=== PATIENT | male | born 1945 | race Caucasian/White ===

== ENCOUNTER 2020-12-17 11:30 | Outpatient (REF) | payer MEDICARE, SELFPAY ==
[2020-12-17 13:59] LABS: MANUAL DIFF FLAG NO
[2020-12-17 14:03] LABS: Glucose Urine UA NEG (NEG); Leukocyte Esterase Urine NEG (NEG); Nitrite Urine NEG (NEG); Urine Blood NEG (NEG); Urine Ketones NEG (NEG); Urine Protein NEG (NEG-TRACE)
[2020-12-17 14:06] LABS: Appearance Urine CLEAR; Color Urine YELLOW
[2020-12-17 14:09] LABS: Basophils Percent Auto 0.4 % (0-2); Eosinophils Absolute Auto 0.3 X10*3/uL (0.0-0.4); Eosinophils Percent Auto 2.9 % (0-4); Hematocrit 43.9 % (42-52); Hemoglobin 14.5 g/dl (14.0-18.0); Imm Gran Abs Auto 0.02 X10*3/uL (0.00-0.03); Imm Gran Pct Auto 0.2 % (0.0-0.4); Lymphocytes Absolute Auto 1.3 X10*3/uL (1.2-4.9); Lymphocytes Percent Auto 14.9 % (20-40); Mean Corpuscular Hemoglobin 28.7 pg (27.0-33.0); Mean Corpuscular Volume 86.8 fL (80-98); Mean Platelet Volume 9.9 fL (9.4-12.4); Monocytes Absolute Auto 0.8 X10*3/uL (0.1-1.2); Monocytes Percent Auto 8.8 % (2-11); Neutrophils Absolute Auto 6.2 X10*3/uL (2.0-8.3); Neutrophils Percent Auto 72.8 % (45-73); Platelet Count 269 X10*3/uL (160-400); Red Blood Count 5.06 X10*6/uL (4.60-5.80); Red Cell Distribution Width 13.5 % (11.0-16.0); White Blood Count 8.6 X10*3/uL (4.8-10.8)
[2020-12-17 14:29] LABS: Bacteria Urine TRACE /LPF; RBC Urine 0 /HPF (0); Squamous Epithelial Cell Urine TRACE /LPF; WBC Urine 0-2 /HPF (0-4)
[2020-12-17 14:43] LABS: Alanine Aminotransferase 18 U/L (0-40); Albumin Level 4.5 g/dL (3.5-5.0); Alkaline Phosphatase 78 U/L (39-117); Anion Gap 15 (12-20); Aspartate Amino Transferase 18 U/L (5-37); Bilirubin Total 0.6 mg/dL (0.0-1.0); Blood Urea Nitrogen 17 mg/dL (9-16); Calcium 9.2 mg/dL (8.4-10.2); Carbon Dioxide 25 mmol/L (22-29); Chloride 112 mmol/L (96-108); Cholesterol 160 mg/dL; Estimated Glomerular Filt Rate 60; Glucose Fasting 96 mg/dL (60-99); HDL Cholesterol 38 mg/dL; LDL Cholesterol Calculated 103 mg/dl; Potassium 3.8 mmol/L (3.3-5.1); Sodium 148 mmol/L (135-145); Triglycerides 99 mg/dL
[2020-12-17 15:05] LABS: Prostate Specific Antigen Scr 3.83 ng/mL (<0.05-4.0)
== END 2020-12-17 11:31 | disposition home or self-care (01) ==
LOC: HO.10HDL 11:30
PROVIDERS: Visit Provider Internal Medicine
DX: N40.0 Benign prostatic hyperplasia without lower urinary tract symptoms (principal); K21.9 Gastro-esophageal reflux disease without esophagitis; K57.90 Diverticulosis of intestine, part unspecified, without perforation or abscess without bleeding; Z12.5 Encounter for screening for malignant neoplasm of prostate; E78.1 Pure hyperglyceridemia
CPT/HCPCS: 36415; 80053; 80061; 81001; 84153; 85025; 87086; 87088; 87186

== ENCOUNTER 2021-01-15 09:53 | Outpatient (REF) | payer MEDICARE, SELFPAY ==
--- NOTE | ~2021-01-15 | US_ITS ---
EXAMINATION: US RETROPERITONEAL COMPLETE (RENAL) CLINICAL INFORMATION: Nocturia. COMPARISON: CT abdomen and pelvis 05/23/2014 TECHNIQUE: Real-time imaging of the kidneys and bladder. FINDINGS: RIGHT KIDNEY: 10.5 x 7.2 x 6.4 cm (SAG x AP x TRV). The kidney is normal in size, contour, and echogenicity. Renal cortical thickness is normal. No renal calculi or focal parenchymal lesions. There is mild hydronephrosis extending into the right lower quadrant. LEFT KIDNEY: 11.6 x 6.4 x 5.8 cm (SAG x AP x TRV). The kidney is normal in size, contour, and echogenicity. Renal cortical thickness is normal. No renal calculi. There is mild hydronephrosis. In addition, there are 2 anechoic cysts midpole laterally measuring 1.1 x 1.3 x 1.2 cm and midpole medially measuring 1.7 x 1.5 x 1.9 cm. BLADDER: Significantly distended urinary bladder with wall trabeculations visualized. Bilateral ureteral jets are demonstrated. Prevoid bladder volume is 1502 mL. Postvoid bladder volume is 1256 mL. US/US retroperitoneal comp IMPRESSION: Large postvoid residual bladder volume. Normal bilateral ureteral jets. Prominent bladder wall trabeculation seen. Two cysts left kidney midpole. Bilateral hydronephrosis, question etiology.
== END 2021-01-15 09:54 | disposition home or self-care (01) ==
LOC: HO.US 09:53
PROVIDERS: PCP Internal Medicine; Visit Provider Internal Medicine
DX: R35.8 Other polyuria (principal); R35.1 Nocturia
CPT/HCPCS: 76770

== ENCOUNTER → 2021-01-16 14:06 | Outpatient (BNVA) | payer MEDICARE, SELFPAY | PROVIDERS: PCP Internal Medicine; Visit Provider Urology | DX: N32.0 Bladder-neck obstruction (principal); R39.12 Poor urinary stream; R35.0 Frequency of micturition; R39.15 Urgency of urination | CPT/HCPCS: 51701; 51702; 51798; 81002; 99202 ==

== ENCOUNTER → 2021-02-06 09:54 | Outpatient (BNVA) | payer MEDICARE, SELFPAY | PROVIDERS: PCP Internal Medicine; Visit Provider Urology | DX: R33.9 Retention of urine, unspecified (principal); N32.0 Bladder-neck obstruction | CPT/HCPCS: 52000; 99212 ==

== ENCOUNTER → 2021-02-22 14:51 | Outpatient (BNVA) | payer MEDICARE, SELFPAY | PROVIDERS: PCP Internal Medicine; Visit Provider Urology | DX: N32.0 Bladder-neck obstruction (principal); R33.9 Retention of urine, unspecified | CPT/HCPCS: Q3014 ==

== ENCOUNTER 2021-05-31 11:00 | Outpatient (REF) | payer MEDICARE, SELFPAY ==
--- NOTE | ~2021-05-31 | XR_ITS ---
EXAMINATION: XR LUMBOSACRAL SPINE CLINICAL INFORMATION: Low back pain. COMPARISON: None. TECHNIQUE: 3 views of the lumbosacral spine. FINDINGS: There is normal lumbar lordosis. The vertebral heights and alignment is normal. There is loss of L2-L3, L1-L2, T12-L1 and T11-T12 disc heights with mild ventral spondylosis. There is no visible acute fracture, dislocation or lytic process. The SI joints are symmetrical. The soft tissues are normal. XR/XR lumbar spine 2-3V IMPRESSION: Degenerative disc changes, mild ventral spondylosis lower dorsal and upper lumbar spine. No acute fracture or lytic process seen.
[2021-05-31 11:43] LABS: MANUAL DIFF FLAG NO
[2021-05-31 11:47] LABS: Basophils Percent Auto 0.6 % (0-2); Eosinophils Absolute Auto 0.3 X10*3/uL (0.0-0.4); Eosinophils Percent Auto 4.3 % (0-4); Hematocrit 43.5 % (42-52); Hemoglobin 14.6 g/dl (14.0-18.0); Imm Gran Abs Auto 0.03 X10*3/uL (0.00-0.03); Imm Gran Pct Auto 0.4 % (0.0-0.4); Lymphocytes Absolute Auto 1.5 X10*3/uL (1.2-4.9); Lymphocytes Percent Auto 21.4 % (20-40); Mean Corpuscular HGB Conc 33.6 g/dl (31.0-36.0); Mean Corpuscular Hemoglobin 29.1 pg (27.0-33.0); Mean Corpuscular Volume 86.8 fL (80-98); Mean Platelet Volume 9.6 fL (9.4-12.4); Monocytes Absolute Auto 0.8 X10*3/uL (0.1-1.2); Monocytes Percent Auto 10.6 % (2-11); Neutrophils Absolute Auto 4.5 X10*3/uL (2.0-8.3); Neutrophils Percent Auto 62.7 % (45-73); Platelet Count 263 X10*3/uL (160-400); Red Blood Count 5.01 X10*6/uL (4.60-5.80); Red Cell Distribution Width 13.2 % (11.0-16.0); White Blood Count 7.1 X10*3/uL (4.8-10.8)
[2021-05-31 12:16] LABS: Alanine Aminotransferase 11 U/L (0-40); Albumin Level 4.2 g/dL (3.5-5.0); Alkaline Phosphatase 83 U/L (39-117); Anion Gap 11 (12-20); Aspartate Amino Transferase 15 U/L (5-37); Bilirubin Total 0.5 mg/dL (0.0-1.0); Blood Urea Nitrogen 15 mg/dL (9-16); C Reactive Protein 0.32 mg/dL (< or = 0.50); Calcium 9.6 mg/dL (8.4-10.2); Carbon Dioxide 24 mmol/L (22-29); Chloride 111 mmol/L (96-108); Estimated Glomerular Filt Rate > 60; Glucose Random 77 mg/dL (60-115); Potassium 4.2 mmol/L (3.3-5.1); Sodium 142 mmol/L (135-145); Total Protein 6.8 g/dL (6.5-8.0)
== END 2021-05-31 11:01 | disposition home or self-care (01) ==
LOC: HO.XRAY 11:00
PROVIDERS: PCP Internal Medicine; Visit Provider Internal Medicine
DX: M54.9 Dorsalgia, unspecified (principal); N40.0 Benign prostatic hyperplasia without lower urinary tract symptoms; N31.9 Neuromuscular dysfunction of bladder, unspecified
CPT/HCPCS: 36415; 72100; 80053; 85025; 86140

== ENCOUNTER 2021-06-24 10:29 | Outpatient (REF) | payer MEDICARE, SELFPAY ==
[2021-06-24 13:33] LABS: Glucose Urine UA NEG (NEG); Leukocyte Esterase Urine 3+ (NEG); Nitrite Urine NEG (NEG); Urine Blood 3+ (NEG); Urine Ketones NEG (NEG); Urine Protein 2+ MG/DL (NEG-TRACE)
[2021-06-24 13:39] LABS: Appearance Urine HAZY; Color Urine YELLOW
[2021-06-24 13:56] LABS: Bacteria Urine 3+ /LPF; WBC Urine TNTC /HPF (0-4)
== END 2021-06-24 10:30 | disposition home or self-care (01) ==
LOC: HO.LAB 10:29
PROVIDERS: PCP Internal Medicine; Visit Provider Urology
DX: R33.9 Retention of urine, unspecified (principal)
CPT/HCPCS: 81001; 87086; 87088; 87186

== ENCOUNTER → 2021-08-27 13:44 | Outpatient (BNVA) | payer MEDICARE, SELFPAY | PROVIDERS: Visit Provider Urology | DX: R33.9 Retention of urine, unspecified (principal); N32.0 Bladder-neck obstruction; N39.0 Urinary tract infection, site not specified | CPT/HCPCS: 51798; 99212 ==

== ENCOUNTER 2021-10-29 16:43 | Outpatient (REF) | payer MEDICARE, SELFPAY ==
[2021-10-29 17:25] LABS: Influenza A PCR NEGATIVE (Negative); Influenza B PCR NEGATIVE (Negative); Resp Syncy Virus RNA Qual PCR NEGATIVE (Negative); SARS COV2 PCR INHOUSE POSITIVE (Negative)
== END 2021-10-29 16:44 | disposition home or self-care (01) ==
LOC: HO.LNP 16:43
PROVIDERS: Visit Provider Internal Medicine
DX: Z20.822 Contact with and (suspected) exposure to COVID-19 (principal); R05.9 Cough, unspecified; R51.9 Headache, unspecified
CPT/HCPCS: 0241U

== ENCOUNTER 2021-10-31 11:55 | Outpatient (REF) | payer MEDICARE, SELFPAY ==
--- NOTE | ~2021-10-31 | XR_ITS ---
EXAMINATION: XR CHEST CLINICAL INFORMATION: Covid positive. Productive cough. COMPARISON: Previous chest x-ray March 2017 TECHNIQUE: 2 views of the chest were obtained. FINDINGS: The cardiac and mediastinal contours are stable. There may be atelectasis or small infiltrate at the left lung base in the left lower lobe. The lungs are otherwise clear. There is no pleural effusion or pneumothorax. There are postsurgical changes to the left shoulder. Bony structures are otherwise unremarkable.. XR/XR chest 2V IMPRESSION: Question atelectasis or small infiltrate left lower lobe.
== END 2021-10-31 11:56 | disposition home or self-care (01) ==
LOC: HO.XRAY 11:55
PROVIDERS: Visit Provider Internal Medicine
DX: U07.1 COVID-19 (principal)
CPT/HCPCS: 71046

== ENCOUNTER 2021-11-06 02:14 | Inpatient (IN) | payer MEDICARE, SELFPAY ==
[2021-11-06] VITALS (12 sets, daily range): BP systolic 104–129; BP diastolic 56–72; PULSE 68–90; RESP 15–22; TEMP 36.3–36.8; O2SAT 86–94; BMI 27.3
--- NOTE | ~2021-11-06 | US_ITS ---
EXAMINATION: US SCROTUM CLINICAL INFORMATION: Swelling scrotum. Left epididymal abscess.. COMPARISON: None TECHNIQUE: A sonogram of the scrotum was performed assessing munguia-scale appearance and color Doppler flow. Spectral Doppler analysis of the arterial and venous flow were performed in the testes bilaterally. FINDINGS: RIGHT: Right testicle measures 4.1 x 3.4 x 2.9 cm, volume 20.6 mL. No focal testicular parenchymal lesions are visualized. Spectral Doppler analysis of the arterial and venous flow is normal in the right testis. Right epididymal head is normal in size. Epididymal head cysts noted measuring up to 1.1 cm. This has a complex appearance. No varicocele. There is a small hydrocele with internal debris. Right epididymal Doppler flow is increased. LEFT: Left testicle measures 4.1 x 2.6 x 2.8 cm, volume 15.6 mL. No focal testicular parenchymal lesions are visualized. Spectral Doppler analysis of the arterial and venous flow is increased in the left testis. Left epididymal head is normal in size. 0.9 cm epididymal head cysts noted. No varicocele. Moderate complex hydrocele. Left epididymal Doppler flow is increased. Area of edema also noted in the left scrotal wall. US/US scrotum IMPRESSION: Bilateral epididymitis. There is also a left orchitis noted. Bilateral complex hydroceles.
--- NOTE | ~2021-11-06 | XR_ITS ---
EXAMINATION: XR CHEST CLINICAL INFORMATION: Cough COMPARISON: 10/31/2021 TECHNIQUE: Frontal view of the chest was obtained. FINDINGS: Cardiac leads overlie the chest. The lungs are well expanded. Patchy opacities are seen at both mid to lower lungs. No pleural effusion or pneumothorax. The cardiomediastinal silhouette is within normal limits. Radiopaque anchors of the left humeral head. XR/XR chest 1V IMPRESSION: Patchy bilateral mid to lower lung opacities could be infectious or inflammatory.
--- NOTE | 2021-11-06 02:54 | ECG_ITS ---
Test Reason : SOB Blood Pressure : / mmHG Vent. Rate : 080 BPM Atrial Rate : 080 BPM P-R Int : 152 ms QRS Dur : 094 ms QT Int : 380 ms P-R-T Axes : 048 015 016 degrees QTc Int : 438 ms Artifact in tracing Normal sinus rhythm Normal ECG No previous ECGs available Referred By: Generic ED Physician Electronically Signed By:YOHANA RUGGIERO
[2021-11-06 03:09] LABS: MANUAL DIFF FLAG NO
[2021-11-06 03:11] LABS: Basophils Percent Auto 0.1 % (0-2); Eosinophils Absolute Auto 0.1 X10*3/uL (0.0-0.4); Eosinophils Percent Auto 0.9 % (0-4); Hematocrit 42.6 % (42.0-52.0); Hemoglobin 14.4 g/dl (14.0-18.0); Imm Gran Pct Auto 2.1 % (0.0-0.4); Lymphocytes Absolute Auto 1.1 X10*3/uL (1.2-4.9); Lymphocytes Percent Auto 7.7 % (20-40); Mean Corpuscular HGB Conc 33.8 g/dl (31.0-36.0); Mean Corpuscular Hemoglobin 28.8 pg (27.0-33.0); Mean Corpuscular Volume 85.2 fL (80.0-98.0); Mean Platelet Volume 8.8 fL (9.4-12.4); Monocytes Absolute Auto 1.1 X10*3/uL (0.1-1.2); Monocytes Percent Auto 7.8 % (2-11); Neutrophils Absolute Auto 11.6 x10*3/uL (2.0-8.3); Neutrophils Percent Auto 81.4 % (45-73); Platelet Count 321 X10*3/uL (160-400); White Blood Count 14.2 X10*3/uL (4.8-10.8)
[2021-11-06 03:18] LABS: D Dimer High Sensitivity 506 NG/ML
[2021-11-06 03:19] LABS: Lactic Acid 0.9 mmol/L (0.5-2.0)
[2021-11-06 03:23] LABS: Anion Gap 14 (12-20); Blood Urea Nitrogen 15 mg/dL (9-16); Calcium 8.7 mg/dL (8.4-10.2); Carbon Dioxide 25 mmol/L (22-29); Chloride 103 mmol/L (96-108); Creatinine Clr Calc Pharmacy 58.2; Estimated Glomerular Filt Rate > 60; Glucose Random 178 mg/dL (60-115); Potassium 3.1 mmol/L (3.3-5.1); Sodium 139 mmol/L (135-145)
[2021-11-06 03:30] LABS: B Type Natriuretic Peptide 13 pg/mL (<100); Troponin-I High Sensitivity 11.8 ng/L (<3.5-35.0)
--- NOTE | 2021-11-06 03:39 | ED_ITS ---
HPI - Male Genitourinary General Chief complaint: Dyspnea Stated complaint: COVID+ , dry cough, swelled scrotum, pneumonia ?? Time Seen by Provider: 11/06/21 03:19 Source: patient Mode of arrival: ambulatory Limitations: no limitations History of Present Illness HPI Narrative: Patient post COVID-19 vaccination received 2 shots few months ago supposed to get booster dose last week when started having cough COVID test came positive patient been coughing since then for last few days noticed gradually increasing tender swelling of left testicle patient does have history of inguinal hernias. When patient arrived in the ER for saturating 88% at room air afebrile patient feels short of breath on ambulation Related Data Home Medications Medication Instructions Recorded Confirmed gemfibrozil 600 mg tablet 600 mg PO BID 01/16/21 11/06/21 omeprazole 20 mg capsule,delayed 20 mg PO DAILY 01/16/21 11/06/21 release azithromycin 250 mg tablet 250 mg PO DAILY 11/06/21 11/06/21 codeine 6.3 mg-guaifenesin 100 5 ml PO NEEDED 11/06/21 mg/5 mL oral liquid Previous Rx's Medication Instructions Recorded finasteride 5 mg tablet 5 mg PO .COMPLEX 90 Days #90 tab 05/14/21 Allergies Allergy/AdvReac Type Severity Reaction Status Date / Time No Known Allergies Allergy Verified 11/06/21 02:38 [No Known Allergies*] Review of Systems Review of Systems: Yes all other systems are reviewed and are negative [facility] Past Medical History Medical History Frequent urination Surgical History History of knee replacement History of rotator cuff surgery Social History Social History Advance Directives: No Physical Exam Vital Signs: Vital Signs: Last Vital Signs Temp 97.3 F 11/06/21 02:33 Pulse 90 11/06/21 02:33 Resp 18 11/06/21 02:33 BP 129/68 11/06/21 02:33 Pulse Ox 91 L 11/06/21 04:05 BMI result Body Mass Index 27.3 Appearance: Alert. Oriented X3. No acute distress. Eyes: No pallor or icterus ENT: Pharynx normal. Oral Mucosa moist Neck: Normal inspection. Neck supple. CVS: Normal heart rate and rhythm. Pulses normal. Respiratory: No respiratory distress. Equal air entry bilateral, prolonged expiration bilateral few crackles Abdomen: Soft and nontender. Bowel sounds are present, no mass palpable, Skin: Skin warm and dry. Normal skin color. Normal skin turgor. Extremities: No lower extremity edema. No calf tenderness Neuro: Oriented X 3. : Male genitals images: 1. Tender 4 x 3 cm oblong swelling about the left testicle clinically complex hydrocele versus sepsis, testis is separate nontender MDM - Male Genitourinary MDM Narrative Medical decision making narrative: Patient with bilateral infiltrates ground- glass opacity secondary to COVID-19 with mild exertional hypoxia to 88% already vaccinated against COVID-19 also has tender swelling of the left testicle specially clinically patient has epididymo-orchitis ultrasound showed complex h ydrocele with orchitis will start patient on Zosyn admit urologist to follow Medical Records Attestation: I reviewed the patient's medical records. Lab Data Attestation: I reviewed the patient's lab results. Result diagrams: 11/06/21 03:01 11/06/21 03:01 Labs: Lab Results 11/06/21 11/06/21 11/06/21 Range/Units 03:01 03:01 03:01 WBC 14.2 H (4.8-10.8) X10*3/uL RBC 5.00 (4.60-5.80) X10*6/uL Hgb 14.4 (14.0-18.0) g/dl Hct 42.6 (42.0-52.0) % MCV 85.2 (80.0-98.0) fL MCH 28.8 (27.0-33.0) pg MCHC 33.8 (31.0-36.0) g/dl RDW 13.0 (11.0-16.0) % Plt Count 321 (160-400) X10*3/uL MPV 8.8 L (9.4-12.4) fL Immature Gran % (Auto) 2.1 H (0.0-0.4) % Neut % (Auto) 81.4 H (45-73) % Lymph % (Auto) 7.7 L (20-40) % [place] % (Auto) 7.8 (2-11) % Eos % (Auto) 0.9 (0-4) % Baso % (Auto) 0.1 (0-2) % Lymph # (Auto) 1.1 L (1.2-4.9) X10*3/uL [place] # (Auto) 1.1 (0.1-1.2) X10*3/uL Eos # (Auto) 0.1 (0.0-0.4) X10*3/uL Baso # (Auto) 0.0 (0.0-0.2) X10*3/uL Abs Immat Gran (auto) 0.30 H (0.00-0.03) X10*3/uL Absolute Neuts (auto) 11.6 H (2.0-8.3) x10*3/uL Absolute Nucleated RBC 0.000 (0.0-0.012) X10*3/uL Nucleated RBC % (auto) 0.0 (0.0-0.2) /100WBC D-Dimer High Sensitivty NG/ML Sodium 139 (135-145) mmol/L Potassium 3.1 L D (3.3-5.1) mmol/L Chloride 103 (96-108) mmol/L Carbon Dioxide 25 (22-29) mmol/L Anion Gap 14 (12-20) BUN 15 (9-16) mg/dL Creatinine 1.06 (0.5-1.4) mg/dL Estim Creat Clear Calc 58.2 Estimated GFR > 60 Random Glucose 178 H D (60-115) mg/dL Lactic Acid (0.5-2.0) mmol/L Calcium 8.7 D (8.4-10.2) mg/dL Troponin I High Sens 11.8 (<3.5-35.0) ng/L B-Natriuretic Peptide 13 (<100) pg/mL 11/06/21 11/06/21 Range/Units 03:01 03:01 WBC (4.8-10.8) X10*3/uL RBC (4.60-5.80) X10*6/uL Hgb (14.0-18.0) g/dl Hct (42.0-52.0) % MCV (80.0-98.0) fL MCH (27.0-33.0) pg MCHC (31.0-36.0) g/dl RDW (11.0-16.0) % Plt Count (160-400) X10*3/uL MPV (9.4-12.4) fL Immature Gran % (Auto) (0.0-0.4) % Neut % (Auto) (45-73) % Lymph % (Auto) (20-40) % [place] % (Auto) (2-11) % Eos % (Auto) (0-4) % Baso % (Auto) (0-2) % Lymph # (Auto) (1.2-4.9) X10*3/uL [place] # (Auto) (0.1-1.2) X10*3/uL Eos # (Auto) (0.0-0.4) X10*3/uL Baso # (Auto) (0.0-0.2) X10*3/uL Abs Immat Gran (auto) (0.00-0.03) X10*3/uL Absolute Neuts (auto) (2.0-8.3) x10*3/uL Absolute Nucleated RBC (0.0-0.012) X10*3/uL Nucleated RBC % (auto) (0.0-0.2) /100WBC D-Dimer High Sensitivty 506 NG/ML Sodium (135-145) mmol/L Potassium (3.3-5.1) mmol/L Chloride (96-108) mmol/L Carbon Dioxide (22-29) mmol/L Anion Gap (12-20) BUN (9-16) mg/dL Creatinine (0.5-1.4) mg/dL Estim Creat Clear Calc Estimated GFR Random Glucose (60-115) mg/dL Lactic Acid 0.9 (0.5-2.0) mmol/L Calcium (8.4-10.2) mg/dL Troponin I High Sens (<3.5-35.0) ng/L B-Natriuretic Peptide (<100) pg/mL Imaging Data scrotal US: Radiologist's impression: US/US scrotum IMPRESSION: Bilateral epididymitis. There is also a left orchitis noted. Bilateral complex hydroceles. ECG Data Attestation: I personally reviewed and interpreted this ECG as follows: Interpretation: Normal sinus rhythm heart rate 80 beats per minute normal intervals normal axis no acute ischemic change Discharge Plan Discharge Clinical Impression: Acute hypoxemic respiratory failure due to COVID-19, Acute epididymo-orchitis Patient Disposition: Admitted As Inpatient
[2021-11-06] MEDS: Piperacillin Sodium/Tazobactam 3.375 GM in 0.9 % Sodium Chloride 50 ML IV (03:53)
--- NOTE | 2021-11-06 04:06 | PC.NURSE ---
Pt constantly desatting to 85-89% on RA. Although pt denies SOB, pt placed on O2 via NC @ 2 lpm.
--- NOTE | 2021-11-06 04:09 | PC.NURSE ---
updated on plan of care via phone [phone].
--- NOTE | 2021-11-06 04:18 | PC.NURSE ---
Med Rec completed on the phone with .
[2021-11-06] MEDS: Potassium Bicarbonate/Cit AC 25 MEQ TABLET.EFF PO (05:51)
[2021-11-06] MEDS: dexAMETHasone sod phosphate 4 MG/ML VIAL 6 MG IVPUSH (06:40)
[2021-11-06] MEDS: Albuterol/Iprat 2.5/0.5MG 3 ML AMPUL.NEB INHALE (06:50)
--- NOTE | 2021-11-06 08:39 | PC.NURSE ---
pt brought in disposable straight catheters from home for pt use.
[2021-11-06 10:16] LABS: Appearance Urine CLEAR; Color Urine YELLOW; Glucose Urine UA NEG (NEG); Leukocyte Esterase Urine NEG (NEG); Nitrite Urine NEG (NEG); PH 5.5 (5.0-8.0); Urine Blood NEG (NEG); Urine Ketones 5 MG/DL (NEG); Urine Protein TRACE MG/DL (NEG-TRACE)
--- NOTE | 2021-11-06 15:46 | P.CNID_ITS ---
History of Present Illness Data of Consult Service Date: 11/06/21 Requesting physician: Rk Coyle Primary Care Provider: Elan Joyner MD [facility] Reason for consult: left epididymo orchitis,COVID He presents for left testicle pain and swelling over last seven days. He has also cough and shortness of breath during that time He has low grade fever Review of Systems Review of Systems: Yes all other systems are reviewed and are negative PMFSH Past Medical History Medical History Frequent urination Family History Family history: reviewed and not pertinent Surgical History Surgical History History of knee replacement History of rotator cuff surgery Social History Social History Advance Directives: No Meds Allergies Allergy/AdvReac Type Severity Reaction Status Date / Time No Known Allergies Allergy Verified 11/06/21 02:38 [No Known Allergies*] Active Medications: Current Medications Acetaminophen (Acetaminophen 325 Mg Tablet) 650 mg PO Q6H PRN PRN Reason: Pain, Mild (Pain Scale 1-3) Dexamethasone Sodium Phosphate (Dexamethasone Sod Phosphate 4 Mg/Ml Vial) 6 mg IVPUSH DAILY SUSIE Enoxaparin Sodium (Enoxaparin Sodium 40 Mg/0.4 Ml Syringe) 40 mg SUBCUT Q24H SUSIE Famotidine (Famotidine/Pf 20 Mg/2 Ml Vial) 20 mg IVPUSH BID@1000,2200 SUSIE Finasteride (Finasteride 5 Mg Tablet) 5 mg PO MoWeFr SUSIE Gemfibrozil (Gemfibrozil 600 Mg Tablet) 600 mg PO BID SUSIE Sodium Chloride (0.9 % Sodium Chloride Flush 3 Ml Syringe) 3 ml IVFLUSH QSHIFT SUSIE Home Medications Medication Instructions Recorded Confirmed Last Taken Type gemfibrozil 600 mg tablet 600 mg PO BID 01/16/21 11/06/21 11/05/21 19:30 History omeprazole 20 mg capsule,delayed 20 mg PO DAILY 01/16/21 11/06/21 11/05/21 History release azithromycin 250 mg tablet 250 mg PO DAILY 11/06/21 11/06/21 11/05/21 19:30 History codeine 6.3 mg-guaifenesin 100 5 ml PO NEEDED 11/06/21 Unknown History mg/5 mL oral liquid Physical Exam Vital Signs: Vital Signs: Last Vital Signs Temp 97.7 F 11/06/21 14:38 Pulse 70 11/06/21 14:38 Resp 22 H 11/06/21 14:38 BP 106/58 L 11/06/21 14:38 Pulse Ox 92 11/06/21 14:38 BMI result Body Mass Index 27.3 Const: General: cooperative Eyes: Pupils: Equal, round and reactive pupils present Resp: Effort & Inspection: normal respiratory effort Cardio: Rate: regular rate Rhythm: regular rhythm GI: Palpation (GI): Soft to palpation and nontender : Other: discomfort left testicular area Scrotum: scrotal swelling Testes: testicular tenderness Neuro: Cranial nerves: Yes Equal, round and reactive pupils present Results Labs CBC & Chem 7: 11/06/21 03:01 11/06/21 03:01 Labs: Short CBC 11/06/21 Range/Units 03:01 WBC 14.2 H (4.8-10.8) X10*3/uL Hgb 14.4 (14.0-18.0) g/dl Hct 42.6 (42.0-52.0) % Plt Count 321 (160-400) X10*3/uL BMP 11/06/21 03:01 Sodium 139 Potassium 3.1 L D Chloride 103 Carbon Dioxide 25 BUN 15 Creatinine 1.06 Calcium 8.7 D Urine 11/06/21 Range/Units 10:02 Urine Color YELLOW Urine Appearance CLEAR Urine pH 5.5 (5.0-8.0) Ur Specific [place] 1.010 (1.005-1.025) Urine Protein TRACE (NEG-TRACE) MG/DL Urine Glucose (UA) NEG (NEG) MG/DL Assessment and Plan (1) Acute hypoxemic respiratory failure due to COVID-19: Status: Acute Would give Dexamethasone (2) Acute epididymo-orchitis: Status: Acute The viral orchiitis is present in up to 20% of men with COVID Would still be concerned about bacterial however Zosyn will cover bacterial causes and Urology will see Po Augmentin 10 d outpatient cover E coli,Klebsiella and other
--- NOTE | 2021-11-06 16:18 | P.HPHOSP_ITS ---
History of Present Illness Date of Service: 11/06/21 Chief Complaint: shortness of breath; swollen left testicle 76-year-old male vaccinated x2 with Pfizer presents after cough for approximately 3-5 days prior to presentation. States he tested negative for COVID-19 x2 with PCP. He states he then developed cough and pain in his left testicle. Noted an abnormality in his scrotum that was worse with each cough. States he became more short of breath which prompted evaluation in emergency room. In the emergency room, chest x-ray consistent with patchy bilateral mid to lower lung opacities consistent with viral pneumonia; scrotal ultrasound consistent with bilateral epididymitis and left orchiitis. He will be admitted for treatment of same. Review of Systems Review of Systems: denies chest pain Denies shortness of breath Denies nausea vomiting diarrhea PMFSH Medical History Frequent urination Surgical History History of knee replacement History of rotator cuff surgery Social History Advance Directives: No Meds Allergies Allergy/AdvReac Type Severity Reaction Status Date / Time No Known Allergies Allergy Verified 11/06/21 02:38 [No Known Allergies*] Active Medications: Current Medications Acetaminophen (Acetaminophen 325 Mg Tablet) 650 mg PO Q6H PRN PRN Reason: Pain, Mild (Pain Scale 1-3) Dexamethasone Sodium Phosphate (Dexamethasone Sod Phosphate 4 Mg/Ml Vial) 6 mg IVPUSH DAILY SUSIE Enoxaparin Sodium (Enoxaparin Sodium 40 Mg/0.4 Ml Syringe) 40 mg SUBCUT Q24H SUSIE Famotidine (Famotidine/Pf 20 Mg/2 Ml Vial) 20 mg IVPUSH BID@1000,2200 SUSIE Finasteride (Finasteride 5 Mg Tablet) 5 mg PO MoWeFr SUSIE Gemfibrozil (Gemfibrozil 600 Mg Tablet) 600 mg PO BID SUSIE Sodium Chloride (0.9 % Sodium Chloride Flush 3 Ml Syringe) 3 ml IVFLUSH QSHIFT SUSIE Home Medications Medication Instructions Recorded Confirmed Last Taken Type gemfibrozil 600 mg tablet 600 mg PO BID 01/16/21 11/06/21 11/05/21 19:30 History omeprazole 20 mg capsule,delayed 20 mg PO DAILY 01/16/21 11/06/21 11/05/21 History release azithromycin 250 mg tablet 250 mg PO DAILY 11/06/21 11/06/21 11/05/21 19:30 History codeine 6.3 mg-guaifenesin 100 5 ml PO NEEDED 11/06/21 Unknown History mg/5 mL oral liquid Physical Exam Vital Signs and Narrative: Vital Signs: Last Vital Signs Temp 97.7 F 11/06/21 14:38 Pulse 70 11/06/21 14:38 Resp 22 H 11/06/21 14:38 BP 106/58 L 11/06/21 14:38 Pulse Ox 92 11/06/21 14:38 BMI result Body Mass Index 27.3 Const: Other: awake alert oriented x3 no acute distress HENMT: Other: oropharynx clear, mucous membranes moist Resp: Other: diminished bilaterally with crackles bilateral lower lobes; mild coarse rhonchi that clear with cough Cardio: Other: no S4; positive S1-S2; no S3 murmurs rubs or gallops GI: Other: soft nontender nondistended. Normal active bowel sounds x4 quadrants : Other: palpable mass left testicle upper pole; extremely tender to touch mild tenderness over right epididymal area Neuro: Other: cranial nerves 2-12 grossly intact as tested. Motor is 5/5 all extremities. Sensation intact. Cognition appropriate Extrem: Other: no edema bilaterally Results Labs CBC and Chem 7: 11/06/21 03:01 11/06/21 03:01 Labs: Laboratory Results - last 24 hr 11/06/21 11/06/21 11/06/21 03:01 03:01 03:01 MCV 85.2 MCH 28.8 MCHC 33.8 RDW 13.0 Plt Count 321 MPV 8.8 L Immature Gran % (Auto) 2.1 H Neut % (Auto) 81.4 H Lymph % (Auto) 7.7 L [place] % (Auto) 7.8 Eos % (Auto) 0.9 Baso % (Auto) 0.1 Lymph # (Auto) 1.1 L [place] # (Auto) 1.1 Eos # (Auto) 0.1 Baso # (Auto) 0.0 Abs Immat Gran (auto) 0.30 H Absolute Neuts (auto) 11.6 H Absolute Nucleated RBC 0.000 Nucleated RBC % (auto) 0.0 D-Dimer High Sensitivty Anion Gap 14 Estim Creat Clear Calc 58.2 Estimated GFR > 60 Random Glucose 178 H D Lactic Acid Calcium 8.7 D Troponin I High Sens 11.8 B-Natriuretic Peptide 13 Urine Color Urine Appearance Urine pH Ur Specific [place] Urine Protein Urine Glucose (UA) Urine Ketones Urine Blood Urine Nitrite Ur Leukocyte Esterase 11/06/21 11/06/21 11/06/21 03:01 03:01 10:02 MCV MCH MCHC RDW Plt Count MPV Immature Gran % (Auto) Neut % (Auto) Lymph % (Auto) [place] % (Auto) Eos % (Auto) Baso % (Auto) Lymph # (Auto) [place] # (Auto) Eos # (Auto) Baso # (Auto) Abs Immat Gran (auto) Absolute Neuts (auto) Absolute Nucleated RBC Nucleated RBC % (auto) D-Dimer High Sensitivty 506 Anion Gap Estim Creat Clear Calc Estimated GFR Random Glucose Lactic Acid 0.9 Calcium Troponin I High Sens B-Natriuretic Peptide Urine Color YELLOW Urine Appearance CLEAR Urine pH 5.5 Ur Specific [place] 1.010 Urine Protein TRACE Urine Glucose (UA) NEG Urine Ketones 5 Urine Blood NEG Urine Nitrite NEG Ur Leukocyte Esterase NEG Imaging Radiologist's Impressions: Impressions Chest X-Ray 11/06/21 03:52 IMPRESSION: Patchy bilateral mid to lower lung opacities could be infectious or inflammatory. Scrotum Ultrasound 11/06/21 04:45 IMPRESSION: Bilateral epididymitis. There is also a left orchitis noted. Bilateral complex hydroceles. Assessment and Plan (1) Acute hypoxemic respiratory failure due to COVID-19: Status: Acute (2) Acute epididymo-orchitis: Status: Acute (3) Urinary retention with incomplete bladder emptying: Status: Acute 76-year-old male vaccinated x2 with Pfizer presents with shortness of breath and O2 requirement; swab positive for COVID-19. Also found to have left orchiitis 1.Acute Hypoxic respiratory failure secondary to Covid-19 pneumoniqa Admit..supplemental O2 to keep sats>92%/IV decadron/Pepcid 2. Orchiitis(left) Will continue Zosyn as per ID....per ID may be r/t Covid however will continue Zosyn No suspicion STD 3. Urinary retention Indwelling burr as opposed to multiple straight caths. Lovenox/Full Code Quality Stroke Does the patient have a stroke diagnosis?: No VTE Prior VTE?: No VTE Risk Level:: Medical - moderate - high VTE Device Contraindication: Treatment Not Indicated VTE Drug Contraindication: N/A - Med Ordered
[2021-11-06] MEDS: 0.9 % Sodium Chloride Flush 3 ML SYRINGE IVFLUSH (17:38)
[2021-11-06] MEDS: Finasteride 5 MG TABLET PO (17:38)
[2021-11-06] MEDS: Enoxaparin Sodium 40 MG/0.4 ML SYRINGE SUBCUT (17:38)
[2021-11-06] MEDS: Famotidine 20 MG TABLET PO (17:38)
--- NOTE | 2021-11-06 17:51 | PM.UROCN ---
History of Present Illness Consult details Consult date: 11/06/21 Narrative: [facility] is a patient known to Urology Requested to see patient due to question of left orchitis Had presented to hospital with left testicle pain that has been lasting for the last 2-3 days On examination has left orchitis White count 14.2 Happens to have concurrently have COVID with pulmonary changes consistent with COVID and saturations 88% Normally does CIC at home Prior urinary tract infection in June with cloaca sensitive to Levaquin. If blood culture negative would treat with Levaquin. Recommend Steen catheter and 14 days antibiotics Review of Systems Constitutional: Constitutional: Reports as per HPI and Reports no additional constitutional complaints Cardiovascular: Cardiovascular: Reports as per HPI and Reports no additional cardiovascular complaints Respiratory: Respiratory: Reports as per HPI and Reports no additional respiratory complaints Gastrointestinal: Gastrointestinal: Reports as per HPI and Reports no additional gastrointestinal complaints Genitourinary: Genitourinary: Reports as per HPI Musculoskeletal: Musculoskeletal: Reports no additional musculoskeletal complaints and Reports as per HPI Neurologic: Reports system reviewed and no additional complaints, except as documented and Reports as per HPI PMFSH Past Medical History Medical History Frequent urination Family History Family history: reviewed and not pertinent Surgical History Surgical History History of knee replacement History of rotator cuff surgery Social History Social History Advance Directives: No Meds Allergies Allergy/AdvReac Type Severity Reaction Status Date / Time No Known Allergies Allergy Verified 11/06/21 02:38 [No Known Allergies*] Active Medications: Current Medications Acetaminophen (Acetaminophen 325 Mg Tablet) 650 mg PO Q6H PRN PRN Reason: Pain, Mild (Pain Scale 1-3) Dexamethasone Sodium Phosphate (Dexamethasone Sod Phosphate 4 Mg/Ml Vial) 6 mg IVPUSH DAILY [facility] Enoxaparin Sodium (Enoxaparin Sodium 40 Mg/0.4 Ml Syringe) 40 mg SUBCUT Q24H [facility] Last Admin: 11/06/21 17:38 Dose: 40 mg Documented by: Famotidine (Famotidine/Pf 20 Mg/2 Ml Vial) 20 mg IVPUSH BID@1000,2200 [facility] Finasteride (Finasteride 5 Mg Tablet) 5 mg PO MoWeFr [facility] Last Admin: 11/06/21 17:38 Dose: 5 mg Documented by: Gemfibrozil (Gemfibrozil 600 Mg Tablet) 600 mg PO BID [facility] Sodium Chloride (0.9 % Sodium Chloride Flush 3 Ml Syringe) 3 ml IVFLUSH QSHIFT [facility] Last Admin: 11/06/21 17:38 Dose: 3 ml Documented by: Home Medications Medication Instructions Recorded Confirmed Last Taken Type gemfibrozil 600 mg tablet 600 mg PO BID 01/16/21 11/06/21 11/05/21 19:30 History omeprazole 20 mg capsule,delayed 20 mg PO DAILY 01/16/21 11/06/21 11/05/21 History release azithromycin 250 mg tablet 250 mg PO DAILY 11/06/21 11/06/21 11/05/21 19:30 History codeine 6.3 mg-guaifenesin 100 5 ml PO NEEDED 11/06/21 Unknown History mg/5 mL oral liquid Physical Exam Vital Signs: Vital Signs: Last Vital Signs Temp 97.7 F 11/06/21 14:38 Pulse 70 11/06/21 14:38 Resp 22 H 11/06/21 14:38 BP 106/58 L 11/06/21 14:38 Pulse Ox 92 11/06/21 14:38 BMI result Body Mass Index 27.3 Const: General: cooperative, healthy appearing, comfortable and no acute distress Orientation/consciousness: patient oriented x3 HENMT: Face and sinus: Yes normal facial exam Mouth: moist mucous membranes Neck: Neck: Yes normal visual inspection, Yes full ROM and Yes trachea midline Chest: Chest palpation & inspection: normal inspection of the chest Resp: Effort & Inspection: normal respiratory effort, able to speak in complete sentences and no respiratory distress GI: Inspection: Yes normal to inspection Back/Spine/Pelvis: Cervical Spine: normal cervical lordosis Thoracic/Lumbar Spine: thoracic and lumbar spine normal to inspection Skin: General skin exam: no rashes or lesions noted Neuro: General: patient oriented x3, tone normal and moves all extremities Extrem: General: Yes normal to inspection and Yes capillary refill normal Results Labs Result diagrams: 11/06/21 03:01 11/06/21 03:01 Labs: Abnormal lab results 11/06/21 11/06/21 Range/Units 03:01 03:01 WBC 14.2 H (4.8-10.8) X10*3/uL MPV 8.8 L (9.4-12.4) fL Immature Gran % (Auto) 2.1 H (0.0-0.4) % Neut % (Auto) 81.4 H (45-73) % Lymph % (Auto) 7.7 L (20-40) % Lymph # (Auto) 1.1 L (1.2-4.9) X10*3/uL Abs Immat Gran (auto) 0.30 H (0.00-0.03) X10*3/uL Absolute Neuts (auto) 11.6 H (2.0-8.3) x10*3/uL Potassium 3.1 L D (3.3-5.1) mmol/L Random Glucose 178 H D (60-115) mg/dL Short CBC 11/06/21 Range/Units 03:01 WBC 14.2 H (4.8-10.8) X10*3/uL Hgb 14.4 (14.0-18.0) g/dl Hct 42.6 (42.0-52.0) % Plt Count 321 (160-400) X10*3/uL BMP 11/06/21 03:01 Sodium 139 Potassium 3.1 L D Chloride 103 Carbon Dioxide 25 BUN 15 Creatinine 1.06 Calcium 8.7 D Urine 11/06/21 Range/Units 10:02 Urine Color YELLOW Urine Appearance CLEAR Urine pH 5.5 (5.0-8.0) Ur Specific [place] 1.010 (1.005-1.025) Urine Protein TRACE (NEG-TRACE) MG/DL Urine Glucose (UA) NEG (NEG) MG/DL All other labs normal. Assessment and Plan (1) Acute epididymo-orchitis: Status: Acute (2) Urinary retention with incomplete bladder emptying: Status: Acute Steen catheter to drain bladder Fourteen days antibiotics for acute epididymo-orchitis Procedures Date of Service Date of Service: 11/06/21
[2021-11-06] MEDS: gemfibroziL 600 MG TABLET PO (20:25)
[2021-11-06] MEDS: guaiFENesin 100 MG/5 ML LIQUID PO (20:25)
[2021-11-06] MEDS: Benzonatate 100 MG CAPSULE PO (20:25)
[2021-11-06 20:47] LABS: COVID-19 Test Positive (Negative); IDNOW Serial# 9DD0AD1C
[2021-11-06] MEDS: Famotidine/PF 20 MG/2 ML VIAL IVPUSH (22:14)
[2021-11-07 01:24] VITALS: BP 118/66; PULSE 74; RESP 18; O2SAT 91
[2021-11-07] MEDS: 0.9 % Sodium Chloride Flush 3 ML SYRINGE IVFLUSH ×4 (01:24→21:02)
--- NOTE | 2021-11-07 03:28 | PC.NURSE ---
report called to ORLY Fuentes in Overflow ED. [facility] to transport pt to ED Overflow.
[2021-11-07 06:53] LABS: MANUAL DIFF FLAG NO
[2021-11-07 06:58] LABS: Basophils Percent Auto 0.1 % (0-2); Eosinophils Absolute Auto 0.1 X10*3/uL (0.0-0.4); Eosinophils Percent Auto 0.3 % (0-4); Hematocrit 41.8 % (42.0-52.0); Hemoglobin 13.7 g/dl (14.0-18.0); Imm Gran Abs Auto 0.32 X10*3/uL (0.00-0.03); Imm Gran Pct Auto 2.1 % (0.0-0.4); Lymphocytes Absolute Auto 1.2 X10*3/uL (1.2-4.9); Lymphocytes Percent Auto 8.2 % (20-40); Mean Corpuscular HGB Conc 32.8 g/dl (31.0-36.0); Mean Corpuscular Hemoglobin 28.4 pg (27.0-33.0); Mean Corpuscular Volume 86.7 fL (80.0-98.0); Mean Platelet Volume 9.1 fL (9.4-12.4); Monocytes Absolute Auto 1.2 X10*3/uL (0.1-1.2); Monocytes Percent Auto 7.8 % (2-11); Neutrophils Absolute Auto 12.3 x10*3/uL (2.0-8.3); Neutrophils Percent Auto 81.5 % (45-73); Platelet Count 340 X10*3/uL (160-400); Red Blood Count 4.82 X10*6/uL (4.60-5.80); Red Cell Distribution Width 13.2 % (11.0-16.0); White Blood Count 15.1 X10*3/uL (4.8-10.8)
[2021-11-07 07:24] LABS: Alanine Aminotransferase 39 U/L (0-40); Albumin Level 3.3 g/dL (3.5-5.0); Alkaline Phosphatase 88 U/L (39-117); Anion Gap 11 (12-20); Aspartate Amino Transferase 26 U/L (5-37); Bilirubin Total 0.6 mg/dL (0.0-1.0); Blood Urea Nitrogen 20 mg/dL (9-16); Calcium 8.8 mg/dL (8.4-10.2); Carbon Dioxide 30 mmol/L (22-29); Chloride 105 mmol/L (96-108); Creatinine Clr Calc Pharmacy 59.9; Estimated Glomerular Filt Rate > 60; Glucose Fasting 150 mg/dL (60-99); Potassium 3.9 mmol/L (3.3-5.1); Sodium 142 mmol/L (135-145); Total Protein 6.1 g/dL (6.5-8.0)
[2021-11-07 08:51] VITALS: BP 122/71; PULSE 53; RESP 19; TEMP 36.9; O2SAT 94
[2021-11-07] MEDS: dexAMETHasone sod phosphate 4 MG/ML VIAL 6 MG IVPUSH (09:10)
[2021-11-07] MEDS: Famotidine/PF 20 MG/2 ML VIAL IVPUSH ×2 (09:11→21:02)
[2021-11-07] MEDS: gemfibroziL 600 MG TABLET PO ×2 (09:11→21:02)
--- NOTE | 2021-11-07 09:14 | PC.NURSE ---
Pt A&Ox3, consistant dry hacking cough present, unproductive per patient at this time, he is requesting cough syrup, hospitalist made aware. Medicated as per MAR orders, unable to scan patient/meds due to computer in room not working and inability to bring in WOW due to isolation precautions. IT department made aware computer not working at this time. Pt on 5L NC at this time, O2 in the mid 90's, O2 fell off and patient desated into the high 80's. Call hendrix within reach, will continue to monitor.
--- NOTE | 2021-11-07 10:11 | PHA.MEDREC ---
Pharmacy Consult ? Medication Reconciliation Pharmacy has completed the medication reconciliation. Nurse spoke to and I confirmed with [facility] 09/07 @10am. Siria Costa RP
[2021-11-07] MEDS: Enoxaparin Sodium 40 MG/0.4 ML SYRINGE SUBCUT (11:57)
--- NOTE | 2021-11-07 12:00 | PC.NURSE ---
Pt A&Ox3, still with dry hacking cough, otherwise no complaints. NC 5L remains in place, awaiting bed assignment. Medicated as per MAR orders for noon meds, unable to scan due to non working computer in room and in ability to bring WOW into room because of isolation status. Awaiting bed assignment, will continue to monitor.
--- NOTE | 2021-11-07 15:24 | MHC.CM.PN ---
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
--- NOTE | 2021-11-07 15:27 | HO.PM.IMPN ---
Subjective Subjective Date of Service: 11/07/21 Interval History: Considerably short of breath with minimal exertion; notes testicular pain improved since admission Review of Systems denies chest pain Denies shortness of breath Denies nausea vomiting diarrhea Physical Exam Vital Signs: Vital Signs: Last Vital Signs Temp 98.4 F 11/07/21 08:51 Pulse 53 11/07/21 08:51 Resp 19 11/07/21 08:51 BP 122/71 11/07/21 08:51 Pulse Ox 94 11/07/21 08:51 BMI result Body Mass Index 27.3 Const: Other: awake alert oriented x3 no acute distress HENMT: Other: oropharynx clear, mucous membranes moist Resp: Other: diminished bilaterally with crackles bilateral lower lobes; mild coarse rhonchi that clear with cough Cardio: Other: no S4; positive S1-S2; no S3 murmurs rubs or gallops GI: Other: soft nontender nondistended. Normal active bowel sounds x4 quadrants : Other: palpable mass left testicle upper pole; extremely tender to touch mild tenderness over right epididymal area Neuro: Other: cranial nerves 2-12 grossly intact as tested. Motor is 5/5 all extremities. Sensation intact. Cognition appropriate Extrem: Other: no edema bilaterally Objective Data Active Medications Acetaminophen (Acetaminophen 325 Mg Tablet) 650 mg PO Q6H PRN PRN Reason: Pain, Mild (Pain Scale 1-3) Benzonatate (Benzonatate 100 Mg Capsule) 100 mg PO TID PRN PRN Reason: Cough Last Admin: 11/06/21 20:25 Dose: 100 mg Documented by: ZHENG Dexamethasone Sodium Phosphate (Dexamethasone Sod Phosphate 4 Mg/Ml Vial) 6 mg IVPUSH DAILY [facility] Last Admin: 11/07/21 09:10 Dose: 6 mg Documented by: KIM Enoxaparin Sodium (Enoxaparin Sodium 40 Mg/0.4 Ml Syringe) 40 mg SUBCUT Q24H [facility] Last Admin: 11/07/21 11:57 Dose: 40 mg Documented by: KIM Famotidine (Famotidine/Pf 20 Mg/2 Ml Vial) 20 mg IVPUSH BID@1000,2200 [facility] Last Admin: 11/07/21 09:11 Dose: 20 mg Documented by: KIM Finasteride (Finasteride 5 Mg Tablet) 5 mg PO MoWeFr [facility] Last Admin: 11/06/21 17:38 Dose: 5 mg Documented by: SNOW Gemfibrozil (Gemfibrozil 600 Mg Tablet) 600 mg PO BID [facility] Last Admin: 11/07/21 09:11 Dose: 600 mg Documented by: KIM Guaifenesin (Guaifenesin 100 Mg/5 Ml Liquid) 5 ml PO Q6H PRN PRN Reason: Cough Last Admin: 11/06/21 20:25 Dose: 5 ml Documented by: ZHENG Sodium Chloride (0.9 % Sodium Chloride Flush 3 Ml Syringe) 3 ml IVFLUSH QSHIFT [facility] Last Admin: 11/07/21 09:10 Dose: 3 ml Documented by: KIM Labs CBC & Chem 7: 11/07/21 05:51 11/07/21 05:51 Labs: Laboratory Results - last 24 hr 11/06/21 11/07/21 11/07/21 20:24 05:51 05:51 MCV 86.7 MCH 28.4 MCHC 32.8 RDW 13.2 Plt Count 340 MPV 9.1 L Immature Gran % (Auto) 2.1 H Neut % (Auto) 81.5 H Lymph % (Auto) 8.2 L [place] % (Auto) 7.8 Eos % (Auto) 0.3 Baso % (Auto) 0.1 Lymph # (Auto) 1.2 [place] # (Auto) 1.2 Eos # (Auto) 0.1 Baso # (Auto) 0.0 Abs Immat Gran (auto) 0.32 H Absolute Neuts (auto) 12.3 H Absolute Nucleated RBC 0.000 Nucleated RBC % (auto) 0.0 Anion Gap 11 L Estim Creat Clear Calc 59.9 Estimated GFR > 60 Fasting Glucose 150 H D Calcium 8.8 Total Bilirubin 0.6 AST 26 D ALT 39 Alkaline Phosphatase 88 Total Protein 6.1 L Albumin 3.3 L D COVID-19 (LUCA) Positive A COVID-19 Clin Com See Note Microbiology Microbiology Results: Microbiology 11/06/21 03:01 Blood Culture - Preliminary Blood - Venous No growth after 24 hours. 11/06/21 03:01 Blood Culture - Preliminary Blood - Venous No growth after 24 hours. Assessment and Plan (1) Acute hypoxemic respiratory failure due to COVID-19: Status: Acute (2) Acute epididymo-orchitis: Status: Acute Assessment and Plan: 76-year-old male vaccinated x2 with Pfizer presents with shortness of breath and O2 requirement; swab positive for COVID-19. Also found to have left orchiitis 1.Acute Hypoxic respiratory failure secondary to Covid-19 pneumoniqa Supplemental O2 to keep sats>92%/IV decadron/Pepcid. titrate O2 as tolerated 2. Orchiitis(left) Will continue Zosyn as per ID....per ID may be r/t Covid however will continue Zosyn No suspicion STD 3. Urinary retention Indwelling burr as opposed to multiple straight caths. Lovenox/Full Code Quality Stroke Does the patient have a stroke diagnosis?: No VTE Prior VTE?: No VTE Risk Level:: Medical - moderate - high VTE Device Contraindication: Treatment Not Indicated VTE Drug Contraindication: N/A - Med Ordered
[2021-11-07] MEDS: Acetaminophen 325 MG TABLET 650 MG PO (17:06)
[2021-11-07] MEDS: guaiFENesin 100 MG/5 ML LIQUID PO (17:07)
[2021-11-07] MEDS: Benzonatate 100 MG CAPSULE PO (17:07)
--- NOTE | 2021-11-07 17:09 | PC.NURSE ---
Pt A&Ox3, headache at this time from the cough, medicated as per PRN orders for headache and cough, unable to scan meds again due to computer in room not working, IT aware. New water given, awaiting bed assignment, will continue to moniotr.
[2021-11-07 18:20] VITALS: BP 107/59; PULSE 58; RESP 22; TEMP 36.7; O2SAT 92
[2021-11-07 20:43] VITALS: BP 115/84; PULSE 71; RESP 20; TEMP 36.9; O2SAT 92
[2021-11-07 23:38] VITALS: BP 124/69; PULSE 60; RESP 18; TEMP 36.7; O2SAT 92
[2021-11-08 03:08] VITALS: BMI 27.7
[2021-11-08 04:00] VITALS: BP 127/73; PULSE 68; RESP 20; TEMP 36.8; O2SAT 98
[2021-11-08 06:32] LABS: MANUAL DIFF FLAG NO
[2021-11-08 06:43] LABS: Basophils Percent Auto 0.1 % (0-2); Eosinophils Percent Auto 0.1 % (0-4); Hematocrit 38.7 % (42.0-52.0); Hemoglobin 12.8 g/dl (14.0-18.0); Imm Gran Pct Auto 1.4 % (0.0-0.4); Lymphocytes Absolute Auto 1.3 X10*3/uL (1.2-4.9); Lymphocytes Percent Auto 9.2 % (20-40); Mean Corpuscular HGB Conc 33.1 g/dl (31.0-36.0); Mean Corpuscular Hemoglobin 28.8 pg (27.0-33.0); Neutrophils Absolute Auto 11.4 x10*3/uL (2.0-8.3); Neutrophils Percent Auto 82.2 % (45-73); Platelet Count 341 X10*3/uL (160-400); Red Blood Count 4.45 X10*6/uL (4.60-5.80); White Blood Count 13.8 X10*3/uL (4.8-10.8)
[2021-11-08 07:15] LABS: Alanine Aminotransferase 49 U/L (0-40); Albumin Level 3.1 g/dL (3.5-5.0); Alkaline Phosphatase 90 U/L (39-117); Anion Gap 12 (12-20); Aspartate Amino Transferase 41 U/L (5-37); Bilirubin Total 0.5 mg/dL (0.0-1.0); Blood Urea Nitrogen 23 mg/dL (9-16); Calcium 8.3 mg/dL (8.4-10.2); Carbon Dioxide 27 mmol/L (22-29); Chloride 107 mmol/L (96-108); Creatinine Clr Calc Pharmacy 67.5; Estimated Glomerular Filt Rate > 60; Glucose Fasting 139 mg/dL (60-99); Potassium 3.9 mmol/L (3.3-5.1); Sodium 142 mmol/L (135-145); Total Protein 5.7 g/dL (6.5-8.0)
[2021-11-08 07:48] VITALS: BP 114/69; PULSE 54; RESP 20; TEMP 36.6; O2SAT 95
[2021-11-08] MEDS: gemfibroziL 600 MG TABLET PO ×2 (09:40→20:31)
[2021-11-08] MEDS: 0.9 % Sodium Chloride Flush 3 ML SYRINGE IVFLUSH ×2 (09:40→16:21)
[2021-11-08] MEDS: dexAMETHasone sod phosphate 4 MG/ML VIAL 6 MG IVPUSH (09:40)
[2021-11-08] MEDS: Famotidine/PF 20 MG/2 ML VIAL IVPUSH ×2 (09:40→20:31)
[2021-11-08 11:26] VITALS: BP 108/59; PULSE 63; RESP 20; TEMP 36.7; O2SAT 92
[2021-11-08] MEDS: Finasteride 5 MG TABLET PO (12:39)
[2021-11-08] MEDS: Enoxaparin Sodium 40 MG/0.4 ML SYRINGE SUBCUT (12:39)
--- NOTE | 2021-11-08 14:19 | P.PNIM_ITS ---
Subjective Subjective Date of Service: 11/08/21 Interval History: the patient was seen and evaluated this morning Laying in bed, feels Better with decreased pain in his left testicle still requiring oxygen supplement of 5 L No reported other overnight events. Systemic review: No fever, chills or weakness No chest pain, palpitation dyspnea with exertion No abdominal pain, nausea or vomiting pain in testicles No any rash or wounds Physical Exam Vital Signs: Vital Signs: Last Vital Signs Temp 98.0 F 11/08/21 11:26 Pulse 63 11/08/21 11:26 Resp 20 11/08/21 11:26 BP 108/59 L 11/08/21 11:26 Pulse Ox 92 11/08/21 11:26 BMI result Body Mass Index 27.7 Const: Other: Constitutional : Alert, oriented, not in distress Neck : Normal inspection, Supple Cardiovascular : RRR, S1 S2, no lower extremity edema Respiratory : good chest movement bilaterally, not tachypneic, on 5 L of oxygen Gastrointestinal: soft, lax, Normal bowel sounds, Non tender Skin : Warm, Dry, testicle mildly tender, mild superficial erythema Neurological : Alert & oriented x3, No focal deficit Objective Data Active Medications Acetaminophen (Acetaminophen 325 Mg Tablet) 650 mg PO Q6H PRN PRN Reason: Pain, Mild (Pain Scale 1-3) Last Admin: 11/07/21 17:06 Dose: 650 mg Documented by: KIM Benzonatate (Benzonatate 100 Mg Capsule) 100 mg PO TID PRN PRN Reason: Cough Last Admin: 11/07/21 17:07 Dose: 100 mg Documented by: KIM Dexamethasone Sodium Phosphate (Dexamethasone Sod Phosphate 4 Mg/Ml Vial) 6 mg IVPUSH DAILY [facility] Last Admin: 11/08/21 09:40 Dose: 6 mg Documented by: JONAS Enoxaparin Sodium (Enoxaparin Sodium 40 Mg/0.4 Ml Syringe) 40 mg SUBCUT Q24H [facility] Last Admin: 11/08/21 12:39 Dose: 40 mg Documented by: JONAS Famotidine (Famotidine/Pf 20 Mg/2 Ml Vial) 20 mg IVPUSH BID@1000,2200 [facility] Last Admin: 11/08/21 09:40 Dose: 20 mg Documented by: JONAS Finasteride (Finasteride 5 Mg Tablet) 5 mg PO MoWeFr [facility] Last Admin: 11/08/21 12:39 Dose: 5 mg Documented by: JONAS Gemfibrozil (Gemfibrozil 600 Mg Tablet) 600 mg PO BID [facility] Last Admin: 11/08/21 09:40 Dose: 600 mg Documented by: JONAS Guaifenesin (Guaifenesin 100 Mg/5 Ml Liquid) 5 ml PO Q6H PRN PRN Reason: Cough Last Admin: 11/07/21 17:07 Dose: 5 ml Documented by: KIM Sodium Chloride (0.9 % Sodium Chloride Flush 3 Ml Syringe) 3 ml IVFLUSH QSHIFT [facility] Last Admin: 11/08/21 09:40 Dose: 3 ml Documented by: JONAS Labs CBC & Chem 7: 11/08/21 06:06 11/08/21 06:06 Labs: Laboratory Results - last 24 hr 11/08/21 11/08/21 06:06 06:06 MCV 87.0 MCH 28.8 MCHC 33.1 RDW 13.0 Plt Count 341 MPV 9.0 L Immature Gran % (Auto) 1.4 H Neut % (Auto) 82.2 H Lymph % (Auto) 9.2 L [place] % (Auto) 7.0 Eos % (Auto) 0.1 Baso % (Auto) 0.1 Lymph # (Auto) 1.3 [place] # (Auto) 1.0 Eos # (Auto) 0.0 Baso # (Auto) 0.0 Abs Immat Gran (auto) 0.20 H Absolute Neuts (auto) 11.4 H Absolute Nucleated RBC 0.000 Nucleated RBC % (auto) 0.0 Anion Gap 12 Estim Creat Clear Calc 67.5 Estimated GFR > 60 Fasting Glucose 139 H Calcium 8.3 L Total Bilirubin 0.5 AST 41 H D ALT 49 H Alkaline Phosphatase 90 Total Protein 5.7 L Albumin 3.1 L Microbiology Microbiology Results: Microbiology 11/06/21 03:01 Blood Culture - Preliminary Blood - Venous No growth after 48 hours. 11/06/21 03:01 Blood Culture - Preliminary Blood - Venous No growth after 48 hours. Assessment and Plan (1) Acute hypoxemic respiratory failure due to COVID-19: Status: Acute (2) Acute epididymo-orchitis: Status: Acute (3) Urinary retention with incomplete bladder emptying: Status: Acute Assessment and Plan: 76-year-old male vaccinated x2 with Pfizer presents with shortness of breath and O2 requirement; swab positive for COVID-19. Also found to have left orchiitis 1.Acute Hypoxic respiratory failure secondary to Covid-19 pneumoniqa Supplemental O2 to keep sats>92% on 5 L of oxygen Continue IV decadron/Pepcid. day 3 titrate O2 as tolerated 2. Orchiitis(left) continue Zosyn as per ID may be r/t Covid No suspicion STD to DC on Augmentin to finish total of 2 weeks 3. Urinary retention Indwelling burr as opposed to multiple straight caths. Lovenox/Full Code Quality Stroke Does the patient have a stroke diagnosis?: No VTE Prior VTE?: No VTE Risk Level:: Medical - moderate - high VTE Device Contraindication: Treatment Not Indicated VTE Drug Contraindication: N/A - Med Ordered
[2021-11-08 15:46] VITALS: BP 119/66; PULSE 65; RESP 18; TEMP 36.9; O2SAT 95
[2021-11-08] MEDS: guaiFENesin 100 MG/5 ML LIQUID PO ×2 (16:21→21:49)
[2021-11-08] MEDS: Benzonatate 100 MG CAPSULE PO (16:34)
[2021-11-08 19:12] VITALS: BP 116/65; PULSE 64; RESP 18; TEMP 36.8; O2SAT 94
[2021-11-09] VITALS (8 sets, daily range): BP systolic 108–152; BP diastolic 65–88; PULSE 57–69; RESP 15–20; TEMP 36.1–37.1; O2SAT 91–95
[2021-11-09] MEDS: 0.9 % Sodium Chloride Flush 3 ML SYRINGE IVFLUSH ×4 (00:23→20:38)
[2021-11-09 08:18] LABS: MANUAL DIFF FLAG NO
[2021-11-09 08:22] LABS: Basophils Percent Auto 0.1 % (0-2); Eosinophils Absolute Auto 0.1 X10*3/uL (0.0-0.4); Eosinophils Percent Auto 0.4 % (0-4); Hematocrit 45.3 % (42.0-52.0); Hemoglobin 14.7 g/dl (14.0-18.0); Imm Gran Abs Auto 0.23 X10*3/uL (0.00-0.03); Imm Gran Pct Auto 1.5 % (0.0-0.4); Lymphocytes Absolute Auto 1.9 X10*3/uL (1.2-4.9); Lymphocytes Percent Auto 12.3 % (20-40); Mean Corpuscular HGB Conc 32.5 g/dl (31.0-36.0); Mean Corpuscular Hemoglobin 28.1 pg (27.0-33.0); Mean Corpuscular Volume 86.6 fL (80.0-98.0); Mean Platelet Volume 8.7 fL (9.4-12.4); Monocytes Absolute Auto 1.3 X10*3/uL (0.1-1.2); Monocytes Percent Auto 8.5 % (2-11); Neutrophils Absolute Auto 11.8 x10*3/uL (2.0-8.3); Neutrophils Percent Auto 77.2 % (45-73); Platelet Count 451 X10*3/uL (160-400); Red Blood Count 5.23 X10*6/uL (4.60-5.80); Red Cell Distribution Width 12.9 % (11.0-16.0); White Blood Count 15.3 X10*3/uL (4.8-10.8)
[2021-11-09 08:39] LABS: Anion Gap 11 (12-20); Blood Urea Nitrogen 24 mg/dL (9-16); Carbon Dioxide 29 mmol/L (22-29); Chloride 107 mmol/L (96-108); Creatinine Clr Calc Pharmacy 68.2; Estimated Glomerular Filt Rate > 60; Glucose Random 105 mg/dL (60-115); Sodium 143 mmol/L (135-145)
[2021-11-09 08:41] LABS: Alanine Aminotransferase 100 U/L (0-40); Albumin Level 3.6 g/dL (3.5-5.0); Alkaline Phosphatase 115 U/L (39-117); Anion Gap 11 (12-20); Aspartate Amino Transferase 67 U/L (5-37); Bilirubin Total 0.6 mg/dL (0.0-1.0); Blood Urea Nitrogen 23 mg/dL (9-16); Carbon Dioxide 29 mmol/L (22-29); Chloride 107 mmol/L (96-108); Creatinine Clr Calc Pharmacy 66.9; Estimated Glomerular Filt Rate > 60; Glucose Fasting 104 mg/dL (60-99); Potassium 4.3 mmol/L (3.3-5.1); Sodium 143 mmol/L (135-145); Total Protein 6.7 g/dL (6.5-8.0)
[2021-11-09 08:47] LABS: Calcium 9.2 mg/dL (8.4-10.2); Calcium 9.5 mg/dL (8.4-10.2)
[2021-11-09] MEDS: Famotidine/PF 20 MG/2 ML VIAL IVPUSH ×2 (09:37→20:38)
[2021-11-09] MEDS: gemfibroziL 600 MG TABLET PO ×2 (09:37→20:38)
[2021-11-09] MEDS: dexAMETHasone sod phosphate 4 MG/ML VIAL 6 MG IVPUSH (09:37)
--- NOTE | 2021-11-09 11:21 | P.PNIM_ITS ---
Subjective Subjective Date of Service: 11/09/21 Interval History: the patient was seen and evaluated this morning Sitting in his chair having breakfast decreased pain in his left testicle still requiring oxygen supplement of 5 L, reporting dyspnea with ambulation No reported other overnight events. Systemic review: No fever, chills or weakness No chest pain, palpitation dyspnea with exertion No abdominal pain, nausea or vomiting pain in testicles No any rash or wounds Physical Exam Vital Signs: Vital Signs: Last Vital Signs Temp 98 F 11/09/21 11:03 Pulse 65 11/09/21 11:03 Resp 18 11/09/21 11:03 BP 152/88 H 11/09/21 11:03 Pulse Ox 91 L 11/09/21 11:03 BMI result Body Mass Index 27.7 Const: Other: Constitutional : Alert, oriented, not in distress Neck : Normal inspection, Supple Cardiovascular : RRR, S1 S2, no lower extremity edema Respiratory : good chest movement bilaterally, not tachypneic, on 5 L of oxygen Gastrointestinal: soft, lax, Normal bowel sounds, Non tender Skin : Warm, Dry, testicle mildly tender, mild superficial erythema Neurological : Alert & oriented x3, No focal deficit Objective Data Active Medications Acetaminophen (Acetaminophen 325 Mg Tablet) 650 mg PO Q6H PRN PRN Reason: Pain, Mild (Pain Scale 1-3) Last Admin: 11/07/21 17:06 Dose: 650 mg Documented by: Benzonatate (Benzonatate 100 Mg Capsule) 100 mg PO TID PRN PRN Reason: Cough Last Admin: 11/08/21 16:34 Dose: 100 mg Documented by: JONAS Dexamethasone Sodium Phosphate (Dexamethasone Sod Phosphate 4 Mg/Ml Vial) 6 mg IVPUSH DAILY [facility] Last Admin: 11/09/21 09:37 Dose: 6 mg Documented by: GEOVANY Enoxaparin Sodium (Enoxaparin Sodium 40 Mg/0.4 Ml Syringe) 40 mg SUBCUT Q24H [facility] Last Admin: 11/08/21 12:39 Dose: 40 mg Documented by: JONAS Famotidine (Famotidine/Pf 20 Mg/2 Ml Vial) 20 mg IVPUSH BID@1000,2200 [facility] Last Admin: 11/09/21 09:37 Dose: 20 mg Documented by: GEOVANY Finasteride (Finasteride 5 Mg Tablet) 5 mg PO MoWeFr [facility] Last Admin: 11/08/21 12:39 Dose: 5 mg Documented by: JONAS Gemfibrozil (Gemfibrozil 600 Mg Tablet) 600 mg PO BID [facility] Last Admin: 11/09/21 09:37 Dose: 600 mg Documented by: GEOVANY Guaifenesin (Guaifenesin 100 Mg/5 Ml Liquid) 5 ml PO Q6H PRN PRN Reason: Cough Last Admin: 11/08/21 21:49 Dose: 5 ml Documented by: MATTHIAS Sodium Chloride (0.9 % Sodium Chloride Flush 3 Ml Syringe) 3 ml IVFLUSH QSHIFT [facility] Last Admin: 11/09/21 09:37 Dose: 3 ml Documented by: GEOVANY Sodium Chloride (Sodium Chloride 0.65 % Nasal 44 Ml Sprbtl) 1 spray NOSTRIL-B Q1H PRN PRN Reason: Nasal Congestion Labs CBC & Chem 7: 11/09/21 07:58 11/09/21 07:58 Labs: Laboratory Results - last 24 hr 11/09/21 11/09/21 11/09/21 07:58 07:58 07:58 MCV 86.6 MCH 28.1 MCHC 32.5 RDW 12.9 Plt Count 451 H D MPV 8.7 L Immature Gran % (Auto) 1.5 H Neut % (Auto) 77.2 H Lymph % (Auto) 12.3 L [place] % (Auto) 8.5 Eos % (Auto) 0.4 Baso % (Auto) 0.1 Lymph # (Auto) 1.9 [place] # (Auto) 1.3 H Eos # (Auto) 0.1 Baso # (Auto) 0.0 Abs Immat Gran (auto) 0.23 H Absolute Neuts (auto) 11.8 H Absolute Nucleated RBC 0.000 Nucleated RBC % (auto) 0.0 Anion Gap 11 L 11 L Estim Creat Clear Calc 66.9 68.2 Estimated GFR > 60 > 60 Random Glucose 105 D Fasting Glucose 104 H Calcium 9.5 D 9.2 Total Bilirubin 0.6 AST 67 H ALT 100 H Alkaline Phosphatase 115 D Total Protein 6.7 Albumin 3.6 Assessment and Plan (1) Acute hypoxemic respiratory failure due to COVID-19: Status: Acute (2) Acute epididymo-orchitis: Status: Acute (3) Urinary retention with incomplete bladder emptying: Status: Acute Assessment and Plan: 76-year-old male vaccinated x2 with Pfizer presents with shortness of breath and O2 requirement; swab positive for COVID-19. Also found to have left orchiitis 1.Acute Hypoxic respiratory failure secondary to Covid-19 pneumoniqa Supplemental O2 to keep sats>92% on 5 L of oxygen Continue IV decadron/Pepcid. day 3 titrate O2 as tolerated 2. Orchiitis(left) continue Zosyn as per ID may be r/t Covid No suspicion STD to DC on Augmentin to finish total of 2 weeks 3. Urinary retention Indwelling burr per urology To follow-up with Dr. Ricketts in the office Lovebettyex/Full Code Quality Stroke Does the patient have a stroke diagnosis?: No VTE Prior VTE?: No VTE Risk Level:: Medical - moderate - high VTE Device Contraindication: Treatment Not Indicated VTE Drug Contraindication: N/A - Med Ordered
[2021-11-09] MEDS: Enoxaparin Sodium 40 MG/0.4 ML SYRINGE SUBCUT (12:52)
[2021-11-09] MEDS: guaiFENesin 100 MG/5 ML LIQUID PO (20:42)
[2021-11-10 03:05] VITALS: BP 121/68; PULSE 55; RESP 20; TEMP 36.1; O2SAT 91
[2021-11-10 03:39] VITALS: BP 116/67; PULSE 49; RESP 16; TEMP 36.7; O2SAT 93
[2021-11-10 07:29] LABS: C Reactive Protein 2.45 mg/dL (< or = 0.50); Lactate Dehydrogenase 287 U/L (118-273)
[2021-11-10 07:36] LABS: Anion Gap 10 (12-20); Blood Urea Nitrogen 19 mg/dL (9-16); Calcium 8.7 mg/dL (8.4-10.2); Carbon Dioxide 27 mmol/L (22-29); Chloride 109 mmol/L (96-108); Creatinine Clr Calc Pharmacy 72.7; Estimated Glomerular Filt Rate > 60; Glucose Random 117 mg/dL (60-115); Potassium 4.3 mmol/L (3.3-5.1); Sodium 142 mmol/L (135-145)
[2021-11-10] MEDS: dexAMETHasone sod phosphate 4 MG/ML VIAL 6 MG IVPUSH (07:42)
[2021-11-10] MEDS: gemfibroziL 600 MG TABLET PO (07:42)
[2021-11-10] MEDS: Benzonatate 100 MG CAPSULE PO (07:42)
[2021-11-10] MEDS: 0.9 % Sodium Chloride Flush 3 ML SYRINGE IVFLUSH (07:42)
[2021-11-10] MEDS: guaiFENesin 100 MG/5 ML LIQUID PO (07:43)
[2021-11-10 08:00] VITALS: BP 107/72; PULSE 74; RESP 18; TEMP 36.5; O2SAT 93
--- NOTE | 2021-11-10 11:01 | P.PNIM_ITS ---
Subjective Subjective Date of Service: 11/10/21 Interval History: The patient was seen and evaluated this morning Laying in the bed, feels comfortable overall decreased pain in his left testicle Decrease oxygen requirement to 2 L, reporting dyspnea with ambulation No reported other overnight events. Systemic review: No fever, chills or weakness No chest pain, palpitation dyspnea with exertion No abdominal pain, nausea or vomiting pain in testicles No any rash or wounds Physical Exam Vital Signs: Vital Signs: Last Vital Signs Temp 97.7 F 11/10/21 08:00 Pulse 74 11/10/21 08:00 Resp 18 11/10/21 08:00 BP 107/72 11/10/21 08:00 Pulse Ox 93 11/10/21 08:00 BMI result Body Mass Index 27.7 Const: Other: Constitutional : Alert, oriented, not in distress Neck : Normal inspection, Supple Cardiovascular : RRR, S1 S2, no lower extremity edema Respiratory : good chest movement bilaterally, not tachypneic, on 2L of oxygen Gastrointestinal: soft, lax, Normal bowel sounds, Non tender Skin : Warm, Dry, testicle mildly tender, mild superficial erythema Neurological : Alert & oriented x3, No focal deficit Objective Data Active Medications Acetaminophen (Acetaminophen 325 Mg Tablet) 650 mg PO Q6H PRN PRN Reason: Pain, Mild (Pain Scale 1-3) Last Admin: 11/07/21 17:06 Dose: 650 mg Documented by: Benzonatate (Benzonatate 100 Mg Capsule) 100 mg PO TID PRN PRN Reason: Cough Last Admin: 11/10/21 07:42 Dose: 100 mg Documented by: ROLAND Dexamethasone Sodium Phosphate (Dexamethasone Sod Phosphate 4 Mg/Ml Vial) 6 mg IVPUSH DAILY [facility] Last Admin: 11/10/21 07:42 Dose: 6 mg Documented by: ROLAND Enoxaparin Sodium (Enoxaparin Sodium 40 Mg/0.4 Ml Syringe) 40 mg SUBCUT Q24H [facility] Last Admin: 11/09/21 12:52 Dose: 40 mg Documented by: GEOVANY Famotidine (Famotidine/Pf 20 Mg/2 Ml Vial) 20 mg IVPUSH BID@1000,2200 [facility] Last Admin: 11/09/21 20:38 Dose: 20 mg Documented by: KAYLIN Finasteride (Finasteride 5 Mg Tablet) 5 mg PO MoWeFr [facility] Last Admin: 11/08/21 12:39 Dose: 5 mg Documented by: JONAS Gemfibrozil (Gemfibrozil 600 Mg Tablet) 600 mg PO BID [facility] Last Admin: 11/10/21 07:42 Dose: 600 mg Documented by: ROLAND Guaifenesin (Guaifenesin 100 Mg/5 Ml Liquid) 5 ml PO Q6H PRN PRN Reason: Cough Last Admin: 11/10/21 07:43 Dose: 5 ml Documented by: ROLAND Sodium Chloride (0.9 % Sodium Chloride Flush 3 Ml Syringe) 3 ml IVFLUSH QSHIFT [facility] Last Admin: 11/10/21 07:42 Dose: 3 ml Documented by: ROLAND Sodium Chloride (Sodium Chloride 0.65 % Nasal 44 Ml Sprbtl) 1 spray NOSTRIL-B Q1H PRN PRN Reason: Nasal Congestion Labs CBC & Chem 7: 11/09/21 07:58 11/10/21 06:35 Labs: Laboratory Results - last 24 hr 11/10/21 11/10/21 06:35 06:35 Anion Gap 10 L Estim Creat Clear Calc 72.7 Estimated GFR > 60 Random Glucose 117 H Calcium 8.7 Lactate Dehydrogenase 287 H C-Reactive Protein 2.45 H Assessment and Plan (1) Acute hypoxemic respiratory failure due to COVID-19: Status: Acute (2) Acute epididymo-orchitis: Status: Acute Assessment and Plan: 76-year-old male vaccinated x2 with Pfizer presents with shortness of breath and O2 requirement; swab positive for COVID-19. Also found to have left orchiitis 1.Acute Hypoxic respiratory failure secondary to Covid-19 pneumoniqa Supplemental O2 to keep sats>92% on 2 L of oxygen today Continue IV decadron/Pepcid. day 4 titrate O2 as tolerated 2. Orchiitis(left) continue Zosyn day 4 as per ID may be r/t Covid No suspicion STD to DC on Augmentin to finish total of 2 weeks 3. Urinary retention Indwelling burr per urology To follow-up with Dr. Ricketts in the office Lovenox/Full Code Quality Stroke Does the patient have a stroke diagnosis?: No VTE Prior VTE?: No VTE Risk Level:: Medical - moderate - high VTE Device Contraindication: Treatment Not Indicated VTE Drug Contraindication: N/A - Med Ordered
[2021-11-10] MEDS: Enoxaparin Sodium 40 MG/0.4 ML SYRINGE SUBCUT (11:19)
[2021-11-10] MEDS: Famotidine/PF 20 MG/2 ML VIAL IVPUSH (11:20)
[2021-11-10 11:43] VITALS: PULSE 87; O2SAT 92
[2021-11-10 11:45] VITALS: BP 110/74; PULSE 76; RESP 22; TEMP 36.7; O2SAT 90
--- NOTE | 2021-11-10 12:02 | P.DS_ITS ---
DS: Providers Provider Date of Service: 11/10/21 Date of admission: 11/06/21 11:56 Primary care physician: Elan Joyner MD Consults: 11/06/21 11:58 Consult to Infectious Diseases Routine Consulting Provider: Corin Crawford Reason for consultation: orchiitis Has provider been notified: Yes 11/06/21 12:03 Consult to Urology Routine Consulting Provider: Collin Ricketts Reason for consultation: Orchiitis Has provider been notified: No DS: Diagnosis Discharge Diagnosis (1) Acute hypoxemic respiratory failure due to COVID-19: Status: Acute (2) Acute epididymo-orchitis: Status: Acute (3) Urinary retention with incomplete bladder emptying: Status: Acute DS: Summary Hospital Course Hospital Course: Admission note HPI ?76-year-old male vaccinated x2 with Pfizer presents after cough for approximately 3-5 days prior to presentation.? States he tested negative for COVID-19 x2 with PCP.? He states he then developed cough and pain in his left testicle.? Noted an abnormality in his scrotum that was worse with each cough.? States he became more short of breath which prompted evaluation in emergency kim m.? In the emergency room, chest x-ray consistent with patchy bilateral mid to lower lung opacities consistent with viral pneumonia; scrotal ultrasound consistent with bilateral epididymitis and left orchiitis. He will be admitted for treatment of same. Hospital Course Patient was admitted for acute hypoxic respiratory failure secondary to COVID-19 infection. Treated with IV steroids and oxygen supplement which was weaned down during the hospital stay. Evaluated by respiratory therapist for home O2 evaluation E past and did not require any oxygen at time of discharge. To finish 5 more days of dexamethasone at time of discharge. Noticed to have left-sided orchitis at time of presentation evaluated by infectious disease and urology with recommendation for treatment with IV antibiotics. He received total of 5 days of IV antibiotics. Id recommended total of 10 days. Will be discharged on 5 extra days of Augmentin. Reported urinary retention and evaluated by Dr. Ricketts his urologist who recommended placing a Steen catheter. To follow-up with Dr. Ricketts in the office. Time Spent with Patient Time attestation: Total time spent providing and/or coordinating discharge services: Discharge coordination time: Greater than 30 minutes Quality: Stroke Does the patient have a stroke diagnosis?: No Physical Exam Vital Signs: Vital Signs: Last Vital Signs Temp 98.0 F 11/10/21 11:45 Pulse 76 11/10/21 11:45 Resp 22 H 11/10/21 11:45 BP 110/74 11/10/21 11:45 Pulse Ox 90 L 11/10/21 11:45 BMI result Body Mass Index 27.7 Const: Other: Constitutional : Alert, oriented, not in distress Neck : Normal inspection, Supple Cardiovascular : RRR, S1 S2, no lower extremity edema Respiratory : good chest movement bilaterally, not tachypneic, on room air Gastrointestinal: soft, lax, Normal bowel sounds, Non tender Skin : Warm, Dry, testicle mildly tender, mild superficial erythema Neurological : Alert & oriented x3, No focal deficit DS: Data Data Completed and Pending Labs on day of discharge: Laboratory Results - last 24 hr 11/10/21 11/10/21 06:35 06:35 Sodium 142 Potassium 4.3 Chloride 109 H Carbon Dioxide 27 Anion Gap 10 L BUN 19 H Creatinine 0.92 Estim Creat Clear Calc 72.7 Estimated GFR > 60 Random Glucose 117 H Calcium 8.7 Lactate Dehydrogenase 287 H C-Reactive Protein 2.45 H Preliminary micro results at discharge 11/06/21 03:01 Blood Culture - Preliminary Blood - Venous No growth after 48 hours. 11/06/21 03:01 Blood Culture - Preliminary Blood - Venous No growth after 48 hours. Discharge Plan Discharge Patient Disposition: Home, Self-Care Discharge Diagnosis: COVID-19 infection Urinary retention Acute epididymo-orchitis Referrals: Elan Joyner MD [Primary Care Provider] - 1 Week Discharge Medications: New dexamethasone 6 mg tablet 6 mg PO DAILY Qty: 5 RF: 0 amoxicillin-pot clavulanate 875-125 mg tablet 1 tab PO BID Qty: 10 RF: 0 Continued finasteride 5 mg tablet 5 mg PO .COMPLEX 90 Days Qty: 90 RF: 2 codeine-guaifenesin 6.3-100 mg/5 mL Liquid 5 ml PO TID PRN (Reason: Cough) RF: 0 omeprazole 20 mg capsule,delayed release(DR/EC) 20 mg PO DAILY RF: 0 gemfibrozil 600 mg tablet 600 mg PO BID RF: 0 Discontinued azithromycin 250 mg Tablet 250 mg PO DAILY RF: 0 Discharge Orders: Discharge Order (Routine); Ordered 11/10/21 Ordered By: Ama Hill Diet: advance to usual diet Activity on Discharge: As tolerated Stand Alone Forms: Patient Portal Discharge page Care Plan Goals: Read below Health Concerns: Read below Plan of Treatment: Read below Assessment: You were admitted to the hospital for evaluation of testicular pain a difficulty breathing. Tested positive for COVID-19 infection and images with significant for testicular infection as well. Treated with IV antibiotic of Zosyn with fair response over the course of hospital stay and evaluated by urology as you developed urinary retention. Steen catheter placed with resolution of retention. You were evaluated by infectious disease specialist who recommended 10 days of antibiotics. Continue Augmentin for 5 more days Continue dexamethasone for 5 more days To follow-up with Dr. Ricketts as outpatient in 2 weeks for catheter removal.
[2021-11-10] MEDS: Piperacillin Sodium/Tazobactam 3.375 GM in 0.9 % Sodium Chloride 50 ML IV (12:20)
--- NOTE | 2021-11-10 12:40 | MHC.CM.PN ---
PT TO DC HOME TODAY WITH NO SERVICES TO TRANSPORT
[2021-11-10] MEDS: Acetaminophen 325 MG TABLET 650 MG PO (13:17)
[2021-11-10 15:48] VITALS: BP 117/68; PULSE 66; RESP 20; TEMP 36.6; O2SAT 91
== END 2021-11-10 16:30 | disposition home or self-care (01) | DRG 177 ==
LOC: HO.ED 05:44 → HO.EDOVER 12:12 → HO.IMC 11-07 18:46
PROVIDERS: Admitting Provider Hospitalist; Emergency Provider Internal Medicine; PCP Internal Medicine; Visit Provider Student in an Organized Health Care Education/Training Program
DX: U07.1 COVID-19 (principal); J12.82 Pneumonia due to coronavirus disease 2019; J96.01 Acute respiratory failure with hypoxia; R33.9 Retention of urine, unspecified; N45.3 Epididymo-orchitis; Z87.440 Personal history of urinary (tract) infections; Z87.891 Personal history of nicotine dependence; Z79.899 Other long term (current) drug therapy
CPT/HCPCS: 36415; 71045; 76870; 80048; 80053; 81003; 83605; 83615; 83880; 84484; 85025; 85379; 86140; 87040; 87635; 93005; 94640; 99285; J1100; J1650; J2543

== ENCOUNTER 2021-11-25 11:51 | Outpatient (REF) | payer MEDICARE, SELFPAY ==
--- NOTE | ~2021-11-25 | XR_ITS ---
EXAMINATION: XR CHEST CLINICAL INFORMATION: Status post COVID, follow-up. COMPARISON: 11/06/2021 and 12 portable chest. TECHNIQUE: 2 views of the chest were obtained. FINDINGS: Mild linear opacities are again seen in the midlung pena bilaterally without significant change. The heart and mediastinal structures are unremarkable XR/XR chest 2V IMPRESSION: Mild linear opacities in the midlung pena bilaterally, right greater than left demonstrates similar appearance, possibly minimally improved in the right midlung. Given these findings were not seen on the 10/31/2021 study these likely represent persistent infiltrate/atelectasis.
[2021-11-25 12:04] LABS: MANUAL DIFF FLAG NO
[2021-11-25 12:39] LABS: Basophils Percent Auto 0.5 % (0-2); Eosinophils Absolute Auto 0.4 X10*3/uL (0.0-0.4); Eosinophils Percent Auto 4.5 % (0-4); Hematocrit 44.5 % (42.0-52.0); Hemoglobin 14.4 g/dl (14.0-18.0); Imm Gran Abs Auto 0.04 X10*3/uL (0.00-0.03); Imm Gran Pct Auto 0.5 % (0.0-0.4); Lymphocytes Absolute Auto 1.3 X10*3/uL (1.2-4.9); Lymphocytes Percent Auto 16.2 % (20-40); Mean Corpuscular HGB Conc 32.4 g/dl (31.0-36.0); Mean Corpuscular Hemoglobin 28.7 pg (27.0-33.0); Mean Corpuscular Volume 88.8 fL (80.0-98.0); Mean Platelet Volume 9.2 fL (9.4-12.4); Monocytes Absolute Auto 0.8 X10*3/uL (0.1-1.2); Neutrophils Absolute Auto 5.6 x10*3/uL (2.0-8.3); Neutrophils Percent Auto 68.3 % (45-73); Platelet Count 303 X10*3/uL (160-400); Red Blood Count 5.01 X10*6/uL (4.60-5.80); Red Cell Distribution Width 13.5 % (11.0-16.0); White Blood Count 8.2 X10*3/uL (4.8-10.8)
[2021-11-25 13:00] LABS: Alanine Aminotransferase 17 U/L (0-40); Albumin Level 3.8 g/dL (3.5-5.0); Alkaline Phosphatase 114 U/L (39-117); Anion Gap 12 (12-20); Aspartate Amino Transferase 14 U/L (5-37); Bilirubin Total 0.5 mg/dL (0.0-1.0); Blood Urea Nitrogen 10 mg/dL (9-16); Calcium 9.9 mg/dL (8.4-10.2); Carbon Dioxide 28 mmol/L (22-29); Chloride 108 mmol/L (96-108); Estimated Glomerular Filt Rate > 60; Glucose Random 101 mg/dL (60-115); Potassium 4.6 mmol/L (3.3-5.1); Sodium 143 mmol/L (135-145); Total Protein 6.8 g/dL (6.5-8.0)
== END 2021-11-25 11:52 | disposition home or self-care (01) ==
LOC: HO.LAB 11:51
PROVIDERS: PCP Internal Medicine; Visit Provider Internal Medicine
DX: J18.9 Pneumonia, unspecified organism (principal); U09.9 Post COVID-19 condition, unspecified; N40.0 Benign prostatic hyperplasia without lower urinary tract symptoms; K21.9 Gastro-esophageal reflux disease without esophagitis
CPT/HCPCS: 36415; 71046; 80053; 85025

== ENCOUNTER → 2021-12-03 14:50 | Outpatient (BNVA) | payer MEDICARE, SELFPAY | PROVIDERS: PCP Internal Medicine; Visit Provider Urology | DX: N32.0 Bladder-neck obstruction (principal); R35.0 Frequency of micturition | CPT/HCPCS: 99212 ==

== ENCOUNTER 2021-12-10 15:12 | Outpatient (REF) | payer MEDICARE, SELFPAY ==
[2021-12-10 16:08] LABS: Appearance Urine CLEAR; Color Urine YELLOW; Glucose Urine UA NEG (NEG); Leukocyte Esterase Urine 3+ (NEG); Nitrite Urine POS (NEG); PH 6.5 (5.0-8.0); Urine Blood 2+ (NEG); Urine Ketones NEG (NEG); Urine Protein 1+ MG/DL (NEG-TRACE)
[2021-12-10 16:18] LABS: Bacteria Urine 3+ /LPF; Squamous Epithelial Cell Urine TRACE /LPF
== END 2021-12-10 15:13 | disposition home or self-care (01) ==
LOC: HO.LAB 15:12
PROVIDERS: PCP Internal Medicine; Visit Provider Urology
DX: R35.0 Frequency of micturition (principal); R39.15 Urgency of urination
CPT/HCPCS: 81001; 87086; 87088; 87186

== ENCOUNTER → 2022-02-28 10:48 | Outpatient (BNVA) | payer MEDICARE, SELFPAY | PROVIDERS: PCP Internal Medicine; Visit Provider Urology | DX: R33.9 Retention of urine, unspecified (principal) | CPT/HCPCS: 99212 ==

== ENCOUNTER 2022-06-09 10:21 | Outpatient (REF) | payer MEDICARE, SELFPAY ==
[2022-06-09 13:29] LABS: MANUAL DIFF FLAG NO
[2022-06-09 13:32] LABS: Basophils Absolute Auto 0.1 X10*3/uL (0.0-0.2); Basophils Percent Auto 0.7 % (0-2); Eosinophils Absolute Auto 0.3 X10*3/uL (0.0-0.4); Eosinophils Percent Auto 3.5 % (0-4); Hematocrit 44.1 % (42.0-52.0); Hemoglobin 14.9 g/dl (14.0-18.0); Imm Gran Abs Auto 0.04 X10*3/uL (0.00-0.03); Imm Gran Pct Auto 0.5 % (0.0-0.4); Lymphocytes Absolute Auto 1.7 X10*3/uL (1.2-4.9); Lymphocytes Percent Auto 23.6 % (20-40); Mean Corpuscular HGB Conc 33.8 g/dl (31.0-36.0); Mean Corpuscular Hemoglobin 29.1 pg (27.0-33.0); Mean Corpuscular Volume 86.1 fL (80.0-98.0); Mean Platelet Volume 9.7 fL (9.4-12.4); Monocytes Absolute Auto 0.7 X10*3/uL (0.1-1.2); Monocytes Percent Auto 9.9 % (2-11); Neutrophils Absolute Auto 4.6 x10*3/uL (2.0-8.3); Neutrophils Percent Auto 61.8 % (45-73); Platelet Count 296 X10*3/uL (160-400); Red Blood Count 5.12 X10*6/uL (4.60-5.80); Red Cell Distribution Width 13.4 % (11.0-16.0); White Blood Count 7.4 X10*3/uL (4.8-10.8)
[2022-06-09 13:47] LABS: Alanine Aminotransferase 16 U/L (0-40); Albumin Level 4.3 g/dL (3.5-5.0); Alkaline Phosphatase 69 U/L (39-117); Anion Gap 11 (12-20); Aspartate Amino Transferase 17 U/L (5-37); Bilirubin Total 0.7 mg/dL (0.0-1.0); Blood Urea Nitrogen 15 mg/dL (9-16); Calcium 9.1 mg/dL (8.4-10.2); Carbon Dioxide 25 mmol/L (22-29); Chloride 109 mmol/L (96-108); Cholesterol 149 mg/dL; Estimated Glomerular Filt Rate > 60; Glucose Fasting 96 mg/dL (60-99); HDL Cholesterol 33 mg/dL; LDL Cholesterol Calculated 98 mg/dl; Potassium 4.1 mmol/L (3.3-5.1); Sodium 141 mmol/L (135-145); Total Protein 6.8 g/dL (6.5-8.0); Triglycerides 90 mg/dL
[2022-06-09 14:08] LABS: Prostate Specific Antigen Scr 1.43 ng/mL (<0.05-4.0)
== END 2022-06-09 10:22 | disposition home or self-care (01) ==
LOC: HO.10HDL 10:21
PROVIDERS: Visit Provider Internal Medicine
DX: Z12.5 Encounter for screening for malignant neoplasm of prostate (principal); E78.5 Hyperlipidemia, unspecified; K21.9 Gastro-esophageal reflux disease without esophagitis; N40.0 Benign prostatic hyperplasia without lower urinary tract symptoms
CPT/HCPCS: 36415; 80053; 80061; 84153; 85025

== ENCOUNTER → 2022-10-17 13:40 | Outpatient (BNVA) | payer MEDICARE, SELFPAY | PROVIDERS: PCP Internal Medicine; Visit Provider Urology | DX: R33.9 Retention of urine, unspecified (principal); R39.12 Poor urinary stream; R39.15 Urgency of urination | CPT/HCPCS: 51798; 99212 ==

== ENCOUNTER 2023-05-02 08:04 | Outpatient (REF) | payer MEDICARE, SELFPAY ==
[2023-05-02 08:37] LABS: MANUAL DIFF FLAG NO
[2023-05-02 09:06] LABS: Basophils Absolute Auto 0.1 X10*3/uL (0.0-0.2); Basophils Percent Auto 0.7 % (0-2); Eosinophils Absolute Auto 0.3 X10*3/uL (0.0-0.4); Eosinophils Percent Auto 3.8 % (0-4); Hematocrit 47.4 % (42.0-52.0); Hemoglobin 15.8 g/dl (14.0-18.0); Imm Gran Abs Auto 0.02 X10*3/uL (0.00-0.03); Imm Gran Pct Auto 0.3 % (0.0-0.4); Lymphocytes Absolute Auto 1.6 X10*3/uL (1.2-4.9); Lymphocytes Percent Auto 22.6 % (20-40); Mean Corpuscular HGB Conc 33.3 g/dl (31.0-36.0); Mean Corpuscular Hemoglobin 29.3 pg (27.0-33.0); Mean Corpuscular Volume 87.8 fL (80.0-98.0); Mean Platelet Volume 9.8 fL (9.4-12.4); Monocytes Absolute Auto 0.7 X10*3/uL (0.1-1.2); Monocytes Percent Auto 9.4 % (2-11); Neutrophils Absolute Auto 4.6 x10*3/uL (2.0-8.3); Neutrophils Percent Auto 63.2 % (45-73); Platelet Count 239 X10*3/uL (160-400); Red Cell Distribution Width 13.7 % (11.0-16.0); White Blood Count 7.2 X10*3/uL (4.8-10.8)
[2023-05-02 09:43] LABS: Alanine Aminotransferase 20 U/L (0-40); Albumin Level 4.1 g/dL (3.5-5.0); Alkaline Phosphatase 62 U/L (39-117); Anion Gap 12 (12-20); Aspartate Amino Transferase 18 U/L (5-37); Bilirubin Total 0.8 mg/dL (0.0-1.0); Blood Urea Nitrogen 12 mg/dL (9-16); Calcium 9.6 mg/dL (8.4-10.2); Carbon Dioxide 25 mmol/L (22-29); Chloride 110 mmol/L (96-108); Cholesterol 161 mg/dL; Estimated Glomerular Filt Rate > 60; Glucose Random 115 mg/dL (60-115); HDL Cholesterol 35 mg/dL; LDL Cholesterol Calculated 104 mg/dl; Potassium 4.1 mmol/L (3.3-5.1); Sodium 143 mmol/L (135-145); Total Protein 6.7 g/dL (6.5-8.0); Triglycerides 111 mg/dL
[2023-05-02 10:05] LABS: Prostate Specific Antigen Scr 1.27 ng/mL (<0.05-4.0)
== END 2023-05-02 08:05 | disposition home or self-care (01) ==
LOC: HO.LAB 08:04
PROVIDERS: PCP Internal Medicine; Visit Provider Internal Medicine
DX: Z12.5 Encounter for screening for malignant neoplasm of prostate (principal); K21.9 Gastro-esophageal reflux disease without esophagitis; N40.0 Benign prostatic hyperplasia without lower urinary tract symptoms; E78.5 Hyperlipidemia, unspecified
CPT/HCPCS: 36415; 80053; 80061; 84153; 85025

== ENCOUNTER → 2023-05-06 15:53 | Outpatient (BNVA) | payer MEDICARE, SELFPAY | PROVIDERS: PCP Internal Medicine; Visit Provider Urology | DX: R33.9 Retention of urine, unspecified (principal); R39.12 Poor urinary stream; N32.0 Bladder-neck obstruction; Z79.899 Other long term (current) drug therapy | CPT/HCPCS: Q3014 ==

== ENCOUNTER 2023-08-28 14:30 | Outpatient (REF) | payer MEDICARE, SELFPAY ==
[2023-08-28 15:59] LABS: Influenza A PCR NEGATIVE (Negative); Influenza B PCR NEGATIVE (Negative); Resp Syncy Virus RNA Qual PCR NEGATIVE (Negative); SARS COV2 PCR INHOUSE POSITIVE (Negative)
== END 2023-08-28 14:31 | disposition home or self-care (01) ==
LOC: HO.LNP 14:30
PROVIDERS: Visit Provider Internal Medicine
DX: R50.9 Fever, unspecified (principal); R05.9 Cough, unspecified; R52 Pain, unspecified; Z11.52 Encounter for screening for COVID-19
CPT/HCPCS: 0241U

== ENCOUNTER → 2023-11-05 11:38 | Outpatient (BNVA) | payer MEDICARE, SELFPAY | PROVIDERS: PCP Internal Medicine; Visit Provider Urology | DX: N31.9 Neuromuscular dysfunction of bladder, unspecified (principal); R33.9 Retention of urine, unspecified | CPT/HCPCS: 99212 ==

== ENCOUNTER 2023-11-05 11:47 | Outpatient (AMB) | payer MEDICARE, SELFPAY ==
--- NOTE | 2023-11-05 11:46 | A.OFFVIS_ITS ---
Intake Intake Visit Reasons: 6m follow up Intake Note: Patient presents today for a 6 month follow-up: Meds- Finasteride Allergies to Antibiotic- No Known Allergies Blood Thinner- None Qi Specialist Required: No Accompanied by: Self / Same As Patient Allergies No Known Allergies [No Known Allergies*] Allergy (Verified 11/05/23 11:47) Medication List - Last Reconciled 11/05/23 by Collin Ricketts MD ascorbic acid (vitamin C) 500 mg PO DAILY 90 days benztropine 0.5 mg PO BID codeine-guaifenesin 6.3-100 mg/5 mL 5 mL PO TID PRN dexamethasone 6 mg PO DAILY finasteride 5 mg PO Thursday, Thursday, Thursday; 90 days gemfibrozil 600 mg PO BID omeprazole 20 mg PO DAILY trimethoprim 100 mg PO DAILY 90 days HPI HPI Comments History of Present Illness Details Kings is a very pleasant male. He is a patient of Dr. Joyner. He is seen for the following urologic conditions - neurogenic bladder - orchitis Continues to require CIC for bladder emptying Has to empty bladder up to 5 times per day. Expected to be ongoing into the foreseeable future Continues to do well with vitamin c and trimethoprim prevention Review in 6 months Urinary retention with incomplete bladder emptying Initial diagnosis with Dribbling overflow incontinence January 20211999 cc in retention Medications combination therapy - stop alpha-glen, continue on finasteride Associated symptoms minimum Investigations - January 2021 cystoscopy. Small prostate. Large bladder with diverticula and trabeculation Should have vitamin-C and methenamine for UTI prevention [facility] Medical History Frequent urination Surgical History History of knee replacement History of rotator cuff surgery Social History Household Members: Spouse Housing: House Do you presently have visiting nurse or other home services: No Patient Tobacco Use Status: Former Tobacco user Second Hand Smoke Exposure: No Current occupational status: retired Review of Systems Const Denies chills and Denies fever(s) Card Reports no additional complaints and Denies syncope Resp Denies cough GI Denies abdominal pain and Denies heartburn Reports as per HPI and Denies change in libido Neuro Denies syncope Psych Denies change in libido Endo Denies change in libido Physical Exam Const General: cooperative, healthy appearing, comfortable and no acute distress Orientation/consciousness: patient oriented x3 HEENT Face and sinus: Yes normal facial exam Mouth: moist mucous membranes Neck Neck: Yes normal visual inspection, Yes full ROM and Yes trachea midline Chest Chest palpation & inspection: normal inspection of the chest Resp Effort & Inspection: normal respiratory effort, able to speak in complete sentences and no respiratory distress GI Inspection: Yes normal to inspection Back/Spine/Pelvis Cervical Spine: normal cervical lordosis Thoracic/Lumbar Spine: thoracic and lumbar spine normal to inspection Skin General skin exam: no rashes or lesions noted Neuro General: patient oriented x3, gait normal, tone normal and moves all extremities Extrem General: Yes normal to inspection and Yes capillary refill normal Assessment & Plan Assessment & Plan (1) Neurogenic urinary bladder disorder: Code(s): N31.9 - Neuromuscular dysfunction of bladder, unspecified (2) Urinary retention with incomplete bladder emptying: Code(s): R33.9 - Retention of urine, unspecified Plan Six month follow-up Patient Instructions: Imaging studies, laboratory and physical exam results were discussed and reviewed in detail. No major barriers to patient understanding were identified. An opportunity to ask questions regarding the treatment plan was provided. All questions were answered. The patient expressed understanding and agreement with the above treatment plan. The patient is aware they should contact our office by phone for worsening of their current condition or the appearance of new urologic symptoms. Compliance is encouraged with any medications and followup testing that is ordered. It is a privilege to participate in the urologic care of your patient. If you have any questions or concerns regarding treatment for the above conditions, or other urologic issues, please do not hesitate to contact me. The office telephone contact is [phone]. This note is constructed using voice recognition software. While every effort has been made to ensure accuracy women's swim coach errors may have been included. Yours sincerely, Dr Collin Ricketts MD, [facility] - Urology Providers of Expert, Compassionate Care for the Genitourinary System Coding Level of Care Code Est Pt Level 3 (54130) Diagnoses Neurogenic urinary bladder disorder N31.9 Urinary retention with incomplete bladder emptying R33.9
== END 2023-11-05 12:04 | disposition home or self-care (01) ==
PROVIDERS: PCP Internal Medicine; Visit Provider Urology
DX: N31.9 Neuromuscular dysfunction of bladder, unspecified (principal); R33.9 Retention of urine, unspecified
CPT/HCPCS: 99213

== ENCOUNTER 2023-11-11 10:18 | Outpatient (REF) | payer MEDICARE, SELFPAY | END 2023-11-11 10:19 | disposition home or self-care (01) | LOC: HO.LNP 10:18 | PROVIDERS: PCP Internal Medicine; Visit Provider Internal Medicine | DX: J04.0 Acute laryngitis (principal); J02.9 Acute pharyngitis, unspecified | CPT/HCPCS: 87070 ==

== ENCOUNTER 2024-03-16 10:07 | Outpatient (REF) | payer MEDICARE, SELFPAY ==
--- NOTE | ~2024-03-16 | XR_ITS ---
EXAMINATION: XR ORBITS CLINICAL INFORMATION: Pre-MRI COMPARISON: None available. TECHNIQUE: 4 views of the orbits were obtained. FINDINGS: No radiopaque foreign body. Orbital rims intact. Visualized paranasal sinuses clear. XR/XR pre mri screening IMPRESSION: No radiopaque foreign body seen. Patient can proceed for MRI.
--- NOTE | ~2024-03-16 | MR_ITS ---
EXAMINATION: MR BRAIN WITHOUT AND WITH CONTRAST CLINICAL INFORMATION: Meige's syndrome, with blepharospasm and oromandibular dystonia COMPARISON: None available. TECHNIQUE: Multiplanar, multisequence MRI of the brain was obtained before and after the intravenous administration of 9 mL Gadavist. FINDINGS: Ventricles, sulci and cisterns are normal for the patient's age. Multiple T2 hyperintense nonenhancing focal lesions are seen in bilateral frontal subcortical and deep white matters. No focal brainstem or cerebellar lesions with abnormal signal can be seen. Diffusion weighted images show no abnormal regional decrease in diffusion. Post contrast images show no enhancing cerebral, brainstem or cerebellar lesions. No abnormal meningeal enhancement is seen. The pituitary gland is normal. Optic chiasm is not displaced. Cerebellar tonsils position is normal. Bilateral ethmoid and maxillary sinuses show mild mucosal thickening. MR/MR head/brain wo/w con IMPRESSION: 1. Multiple T2 hyperintense nonenhancing focal lesions are seen in bilateral frontal subcortical and deep white matter. Findings are nonspecific and could be related to chronic microvascular ischemic disease, demyelinating disease, vasculitis, Lyme disease, or migraine headaches. 2. No enhancing cerebral, brainstem or cerebellar lesions. 3. No evidence of acute cerebral infarction. 4. Mild bilateral ethmoid and maxillary sinus disease.
== END 2024-03-16 10:08 | disposition home or self-care (01) ==
LOC: HO.MRI 10:07
PROVIDERS: Absent Provider Internal Medicine; PCP Internal Medicine; Visit Provider Psychiatry & Neurology Neurology
DX: G24.4 Idiopathic orofacial dystonia (principal)
CPT/HCPCS: 70553; A9585

== ENCOUNTER 2024-04-21 11:54 | Outpatient (REF) | payer MEDICARE, SELFPAY ==
[2024-04-21 13:11] LABS: Influenza A PCR NEGATIVE (Negative); Influenza B PCR NEGATIVE (Negative); Resp Syncy Virus RNA Qual PCR NEGATIVE (Negative); SARS COV2 PCR INHOUSE NEGATIVE (Negative)
== END 2024-04-21 11:55 | disposition home or self-care (01) ==
LOC: HO.LNP 11:54
PROVIDERS: Visit Provider Internal Medicine
DX: R05.9 Cough, unspecified (principal)
CPT/HCPCS: 0241U

== ENCOUNTER 2024-05-05 10:02 | Outpatient (AMB) | payer MEDICARE, SELFPAY ==
--- NOTE | 2024-05-05 10:04 | MHC.OFFVIS ---
Intake Visit Reasons: 6m follow up Intake Note: Patient is Present for Telephone Follow Up Urology Med: Finasteride, Vitamin C Antibiotic Allergy:None Blood Thinner:None Allergies No Known Allergies [No Known Allergies*] Allergy (Verified 05/05/24 10:05) Medication List - Last Reconciled 05/05/24 by Collin Ricketts MD ascorbic acid (vitamin C) 500 mg PO DAILY 90 days benztropine 0.5 mg PO BID codeine-guaifenesin 6.3-100 mg/5 mL 5 mL PO TID PRN dexamethasone 6 mg PO DAILY finasteride 5 mg PO Thursday, Thursday, Thursday; 90 days gemfibrozil 600 mg PO BID omeprazole 20 mg PO DAILY trimethoprim 100 mg PO DAILY 90 days HPI Comments Details: Kings is a very pleasant male. He is a patient of Dr. Joyner. He is seen for the following urologic conditions - neurogenic bladder - orchitis Telemedicine Evaluation 15 min Consultation [facility] [place] [facility] Continues to require CIC for bladder emptying Has to empty bladder up to 5 times per day. 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 Small prostate. Large bladder with diverticula and trabeculation Should have vitamin-C and methenamine for UTI prevention PFSH Medical History Frequent urination Surgical History History of knee replacement History of rotator cuff surgery Social History Household Members: Spouse Housing: House Do you presently have visiting nurse or other home services: No Patient Tobacco Use Status: Former Tobacco user Second Hand Smoke Exposure: No Current occupational status: retired Review of Systems Const All systems reviewed & are unremarkable except as noted in HPI and below Reports no additional complaints Resp Reports no additional complaints GI Reports no additional complaints Reports as per HPI Musc Reports no additional complaints Physical Exam Telemedicine evaluation Appropriate responses Regular breathing rate and rhythm HEENT Head: Yes normal to inspection Ears: hearing grossly normal bilaterally Eyes General: appearance normal, both eyes and all related structures Neck Neck: Yes normal visual inspection Chest Chest palpation & inspection: normal inspection of the chest Resp Effort & Inspection: normal respiratory effort and able to speak in complete sentences Telehealth Telehealth Telehealth Platform: Eventful Location of provider rendering services: practice address Location of patient: address on file Patient Identification confirmed using: Name, : Yes Telehealth method: video Patient verbally consented to treatment: Yes Patient verbally consented to billing insurance company: Yes Patient informed of any privacy concerns related to visit: Yes Minutes spent on Phone/Video with Pt.: 15 Assessment & Plan Assessment & Plan (1) Neurogenic urinary bladder disorder: Code(s): N31.9 - Neuromuscular dysfunction of bladder, unspecified Category: Medical (2) Urinary retention with incomplete bladder emptying: Code(s): R33.9 - Retention of urine, unspecified Category: Medical Plan Six-month follow-up Medications: Refilled ascorbic acid (vitamin C) 500 mg PO DAILY 90 days 90 tabs 1RF R33.9 - Retention of urine, unspecified trimethoprim 100 mg PO DAILY 90 days 90 tabs 1RF R33.9 - Retention of urine, unspecified finasteride 5 mg PO Thursday, Thursday, Thursday; 90 days 90 tabs 1RF Patient Instructions: Imaging studies, laboratory and physical exam results were discussed and reviewed in detail. No major barriers to patient understanding were identified. An opportunity to ask questions regarding the treatment plan was provided. All questions were answered. The patient expressed understanding and agreement with the above treatment plan. The patient is aware they should contact our office by phone for worsening of their current condition or the appearance of new urologic symptoms. Compliance is encouraged with any medications and followup testing that is ordered. It is a privilege to participate in the urologic care of your patient. If you have any questions or concerns regarding treatment for the above conditions, or other urologic issues, please do not hesitate to contact me. The office telephone contact is [phone]. This note is constructed using voice recognition software. While every effort has been made to ensure accuracy embedded software design engineer errors may have been included. Yours sincerely, Dr Collin Ricketts MD, [facility] - Urology Providers of Expert, Compassionate Care for the Genitourinary System Coding Level of Care Code Tele Est Pt Level 3 (37149) Diagnoses Neurogenic urinary bladder disorder N31.9 Urinary retention with incomplete bladder emptying R33.9
== END 2024-05-05 10:30 | disposition home or self-care (01) ==
LOC: HO.HUSH 10:03
PROVIDERS: PCP Internal Medicine; Visit Provider Urology
DX: N31.9 Neuromuscular dysfunction of bladder, unspecified (principal); R33.9 Retention of urine, unspecified
CPT/HCPCS: 99213

== ENCOUNTER → 2024-05-05 10:02 | Outpatient (BNVA) | payer MEDICARE, SELFPAY | PROVIDERS: PCP Internal Medicine; Visit Provider Urology ==

== ENCOUNTER 2024-06-02 10:35 | Outpatient (REF) | payer MEDICARE, SELFPAY ==
[2024-06-02 13:16] LABS: MANUAL DIFF FLAG NO
[2024-06-02 13:19] LABS: Basophils Absolute Auto 0.1 X10*3/uL (0.0-0.2); Basophils Percent Auto 0.7 % (0-2); Eosinophils Absolute Auto 0.2 X10*3/uL (0.0-0.4); Eosinophils Percent Auto 3.3 % (0-4); Hematocrit 49.4 % (42.0-52.0); Imm Gran Abs Auto 0.02 X10*3/uL (0.00-0.03); Imm Gran Pct Auto 0.3 % (0.0-0.4); Lymphocytes Absolute Auto 1.5 X10*3/uL (1.2-4.9); Lymphocytes Percent Auto 21.6 % (20-40); Mean Corpuscular HGB Conc 34.4 g/dl (31.0-36.0); Mean Corpuscular Hemoglobin 29.6 pg (27.0-33.0); Mean Corpuscular Volume 85.9 fL (80.0-98.0); Mean Platelet Volume 9.4 fL (9.4-12.4); Monocytes Absolute Auto 0.7 X10*3/uL (0.1-1.2); Monocytes Percent Auto 9.6 % (2-11); Neutrophils Absolute Auto 4.5 x10*3/uL (2.0-8.3); Neutrophils Percent Auto 64.5 % (45-73); Platelet Count 245 X10*3/uL (160-400); Red Blood Count 5.75 X10*6/uL (4.60-5.80); Red Cell Distribution Width 13.7 % (11.0-16.0); White Blood Count 6.9 X10*3/uL (4.8-10.8)
[2024-06-02 13:50] LABS: Alanine Aminotransferase 15 U/L (0-40); Albumin Level 4.2 g/dL (3.5-5.0); Alkaline Phosphatase 69 U/L (39-117); Anion Gap 13 (12-20); Aspartate Amino Transferase 17 U/L (5-37); Bilirubin Total 0.7 mg/dL (0.0-1.0); Blood Urea Nitrogen 15 mg/dL (9-16); Calcium 9.7 mg/dL (8.4-10.2); Carbon Dioxide 26 mmol/L (22-29); Chloride 108 mmol/L (96-108); Cholesterol 162 mg/dL (<200); Estimated Glomerular Filt Rate > 60; Glucose Fasting 107 mg/dL (60-99); HDL Cholesterol 36 mg/dL (>40); LDL Cholesterol Calculated 104 mg/dL (<100); Sodium 143 mmol/L (135-145); Total Protein 6.8 g/dL (6.5-8.0); Triglycerides 114 mg/dL (<150)
[2024-06-02 13:51] LABS: Prostate Specific Antigen Scr 1.46 ng/mL (<0.05-4.0)
== END 2024-06-02 10:36 | disposition home or self-care (01) ==
LOC: HO.10HDL 10:35
PROVIDERS: Visit Provider Internal Medicine
DX: K21.9 Gastro-esophageal reflux disease without esophagitis (principal); Z12.5 Encounter for screening for malignant neoplasm of prostate; N40.1 Benign prostatic hyperplasia with lower urinary tract symptoms; E78.5 Hyperlipidemia, unspecified
CPT/HCPCS: 36415; 80053; 80061; 84153; 85025

== ENCOUNTER 2024-11-04 10:24 | Outpatient (AMB) | payer MEDICARE, SELFPAY ==
--- NOTE | 2024-11-04 10:27 | MHC.OFFVIS ---
Intake Visit Reasons: 6m follow up Intake Note: Patient is present for 6M F/U Urology Medication:CETIRIZINE,CODEINE,TRIMETHOPRIM,BACLOFEN,FLUTICASONE,VITAMIN C,FINASTERIDE Antibiotic Allergy:NONE Blood Thinner:NONE Wet Milling Wheel Operator Required: No Allergies No Known Allergies [No Known Allergies*] Allergy (Verified 11/04/24 10:28) HPI Comments Details: Kings is a very pleasant male. He is a patient of Dr. Joyner. He is seen for the following urologic conditions - neurogenic bladder - orchitis Six-month follow up Continues to require CIC for bladder emptying Has to empty bladder up to 5 times per day. 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 Small prostate. Large bladder with diverticula and trabeculation Should have vitamin-C and trimethoprim for UTI prevention PFSH Medical History Frequent urination Surgical History History of knee replacement History of rotator cuff surgery Social History Household Members: Spouse Housing: House Do you presently have visiting nurse or other home services: No Patient Tobacco Use Status: Former Tobacco user Second Hand Smoke Exposure: No Current occupational status: retired Review of Systems Const Denies chills and Denies fever(s) Card Reports no additional complaints and Denies syncope Resp Denies cough GI Denies abdominal pain and Denies heartburn Reports as per HPI and Denies change in libido Neuro Denies syncope Psych Denies change in libido Endo Denies change in libido Physical Exam Const General: cooperative, healthy appearing, comfortable and no acute distress Orientation/consciousness: patient oriented x3 HEENT Face and sinus: Yes normal facial exam Mouth: moist mucous membranes Neck Neck: Yes normal visual inspection, Yes full ROM and Yes trachea midline Chest Chest palpation & inspection: normal inspection of the chest Resp Effort & Inspection: normal respiratory effort, able to speak in complete sentences and no respiratory distress GI Inspection: Yes normal to inspection Back/Spine/Pelvis Cervical Spine: normal cervical lordosis Thoracic/Lumbar Spine: thoracic and lumbar spine normal to inspection Skin General skin exam: no rashes or lesions noted Neuro General: patient oriented x3, gait normal, tone normal and moves all extremities Extrem General: Yes normal to inspection and Yes capillary refill normal Assessment & Plan Assessment & Plan (1) Neurogenic urinary bladder disorder: Code(s): N31.9 - Neuromuscular dysfunction of bladder, unspecified Category: Medical Plan Six-month follow-up tele Medications: Refilled ascorbic acid (vitamin C) 500 mg PO DAILY 90 days 90 tabs 1RF R33.9 - Retention of urine, unspecified finasteride 5 mg PO Thursday, Thursday, Thursday; 90 days 90 tabs 1RF Patient Instructions: Imaging studies, laboratory and physical exam results were discussed and reviewed in detail. No major barriers to patient understanding were identified. An opportunity to ask questions regarding the treatment plan was provided. All questions were answered. The patient expressed understanding and agreement with the above treatment plan. The patient is aware they should contact our office by phone for worsening of their current condition or the appearance of new urologic symptoms. Compliance is encouraged with any medications and followup testing that is ordered. It is a privilege to participate in the urologic care of your patient. If you have any questions or concerns regarding treatment for the above conditions, or other urologic issues, please do not hesitate to contact me. The office telephone contact is [phone]. This note is constructed using voice recognition software. While every effort has been made to ensure accuracy engineering test mechanic errors may have been included. Yours sincerely, Dr Collin Ricketts MD, [facility] - Urology Providers of Expert, Compassionate Care for the Genitourinary System Coding Level of Care Code Est Pt Level 3 (65675) Diagnoses Neurogenic urinary bladder disorder N31.9
== END 2024-11-04 11:42 | disposition home or self-care (01) ==
PROVIDERS: PCP Internal Medicine; Visit Provider Urology
DX: N31.9 Neuromuscular dysfunction of bladder, unspecified (principal)
CPT/HCPCS: 99213

== ENCOUNTER → 2024-11-04 10:24 | Outpatient (BNVA) | payer MEDICARE, SELFPAY | PROVIDERS: PCP Internal Medicine; Visit Provider Urology | DX: N31.9 Neuromuscular dysfunction of bladder, unspecified (principal); R33.9 Retention of urine, unspecified | CPT/HCPCS: 99212 ==

== ENCOUNTER 2025-01-27 14:31 | Outpatient (AMB) | payer MEDICARE, SELFPAY ==
--- NOTE | 2025-01-27 15:21 | MHC.PC.OV ---
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 Up Worker Required: No Accompanied by: Spouse Allergies No Known Allergies [No Known Allergies*] Allergy (Verified 01/27/25 15:22) Medication List - Last Reconciled 01/27/25 by Josefa Thompson MD ascorbic acid (vitamin C) 500 mg PO DAILY 90 days baclofen 10 mg PO BID finasteride 5 mg PO Thursday, Thursday, Thursday; 90 days fluticasone propionate 50 mcg/actuation 1 spray intranasal BID gemfibrozil 600 mg PO BID omeprazole 20 mg PO DAILY trimethoprim 100 mg PO DAILY 90 days Tobacco use date assessed: 01/27/25 Fall risk assessment: No Falls in past year Last assessed Fall Risk: 01/27/25 Dental Screening Dental Screen Date: 01/27/25 Did you have a dental visit in the last 12 months?: Yes Did you have a dental problem in the last 6 months where you did not have access to dental care?: No HPI HPI Comments History of Present Illness Details The patient is a 79 year old male with a past medical history of hyperlipidemia, osteoarthritis s/p LTKR, BPH, GERD, presenting for follow up CV: on gemfibrozol 600mg twice daily. GERD: stable on prilosec BPH: on finasteride. self cath multiple times per day. 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 Responded to baclofen. Colonoscopy: ROS CONSTITUTIONAL: Denies weight loss, fever and chills. HEENT: Denies changes in vision and hearing. RESPIRATORY: Denies SOB and cough. CV: Denies palpitations and CP GI: Denies abdominal pain, nausea, vomiting and diarrhea. : Denies dysuria and urinary frequency. MSK: Denies new myalgia and joint pain. SKIN: Denies rash and pruritus. NEUROLOGICAL: Denies headache PSYCHIATRIC: Denies recent changes in mood. PHYSICAL EXAM: GENERAL: Alert and oriented x 3. NAD EYES: EOMI. Anicteric. HENT: Moist mucous membranes. No scleral icterus. No cervical lymphadenopathy. LUNGS: Clear to auscultation bilaterally. CARDIOVASCULAR: Regular rate and rhythm. No murmur. No JVD. ABDOMEN: Soft, non-tender +bs EXTREMITIES: No edema. Non-tender. SKIN: No rashes or lesions. Warm. NEUROLOGIC: No focal neurological deficits. CN II-XII grossly intact PSYCHIATRIC: Cooperative. Appropriate mood and affect [facility] Medical History Frequent urination Surgical History History of knee replacement History of rotator cuff surgery Family History Father COPD (chronic obstructive pulmonary disease) Mother Diabetes Epilepsy Alcohol abuse Stroke Social History Household Members: Spouse Housing: House Do you presently have visiting nurse or other home services: No Alcohol intake: current Alcohol intake frequency: a few times a week Alcohol type: beer Patient Tobacco Use Status: Former Tobacco user service: No Current occupational status: retired Cognitive needs: No Hearing needs: No Vision needs: Yes (rx glasses) Questionnaire PHQ-9 Over the last 2 weeks, how often have you been bothered by any of the following problems? 1. Little interest or pleasure in doing things: not at all 2. Feeling down, depressed, or hopeless: not at all 3. Trouble falling or staying asleep, or sleeping too much: not at all 4. Feeling tired or having little energy: not at all 5. Poor appetite or overeating: not at all 6. Feeling bad about yourself - or that you are a failure or have let yourself or your family down: not at all 7. Trouble concentrating on things, such as reading the newspaper or watching television: not at all 8. Moving or speaking so slowly that other people could have noticed. Or the opposite - being so fidgety or restless that you have been moving around a lot more than usual: not at all 9. Thoughts that you would be better off or of hurting yourself in some way: not at all Total score: 0 Depression Screening Interpretation: Negative Depression Screening Done: Yes 57589 - PHQ-9 Billing: Yes Source: Developed by Drs. Karson Clements, Pili Mcnair, Joselo Thompson and colleagues, with an educational mayco from [employer]. Thrive Questionnaire Date Thrive assessed: 01/27/25 I am a: Patient What is your living situation today?: I have a steady place to live Within the past 12 months, did the food you bought not last and you didn't have the money to get more?: Never true Within the past 12 months, did you worry whether your food would run out before you got money to buy more?: Never true Do you have trouble paying for medicines?: No Do you have trouble getting transportation to medical appointments?: No Do you have trouble paying your heating and electricity bill?: No Do you have trouble taking care of your child, family member or friend?: No Do you have trouble with day-to-day activities such as bathing, preparing meals, shopping, managing finances, etc.?: No Are you currently unemployed and looking for a job?: No Are you interested in more education?: No THRIVE Score: 0 AUDIT C Alcohol Use Questionnaire (AUDIT-C) 1. How often do you have a drink containing alcohol?: 2-3 times a week 2. How many drinks containing alcohol do you have on a typical day when you are drinking?: 1 or 2 3. How often do you have six or more drinks on one occasion?: Never Total Score: 3 KENY-7 AMB Questionnaire KENY-7 Date KENY - 7 assessed: 01/27/25 Feeling nervous, anxious, or on edge: 0 = Not at all Not being able to stop or control worryin = Not at all Worrying too much about different things: 0 = Not at all Trouble relaxin = Not at all Being so restless that it is hard to sit still: 0 = Not at all Becoming easily annoyed or irritable: 0 = Not at all Feeling afraid as if something awful might happen: 0 = Not at all Total KENY-7 score (0-4 normal; 5-9 mild; 10-14 moderate; 15-21 severe): 0 Source: Developed by Drs. Karson Clements, Joselo Pizarro and colleagues, with an educational mayco from [employer]. Physical exam (Primary Care) Vital Signs: Last Vital Signs Temp 97.7 F 01/27/25 15:36 Pulse 70 01/27/25 15:36 Resp 14 01/27/25 15:36 BP 124/70 01/27/25 15:36 Pulse Ox 96 01/27/25 15:36 Oxygen Delivery Method Room Air 01/27/25 15:36 BMI result Body Mass Index 26.7 Tobacco/Smoking Status: Tobacco use Status Tobacco use date assessed 01/27/25 01/27/25 15:23 Patient Tobacco Use Status Former Tobacco user 01/27/25 15:43 PHQ-9: PHQ-9 Score PHQ-9: Total score 0 01/27/25 15:51 Depression Screening Interpretation: Negative Thrive Assessment: Date of Thrive Assessment Date Thrive assessed 01/27/25 01/27/25 15:23 Coding Level of Care Code Est Pt Level 4 (88287) Complex EM visit Add On G2211 Diagnoses Pure hypercholesterolemia E78.00 Hyperlipidemia type: pure hypercholesterolemia Gastroesophageal reflux disease, unspecified whether esophagitis present K21.9 Esophagitis presence: esophagitis presence not specified 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 Additional Codes PHQ-9 - 81190 - PHQ-9 Billing: Yes ([id number]) Assessment & Plan Assessment & Plan (1) Hyperlipidemia: Code(s): E78.5 - Hyperlipidemia, unspecified Category: Medical Qualifiers: Hyperlipidemia type: pure hypercholesterolemia Qualified Code(s): E78.00 - Pure hypercholesterolemia, unspecified Plan: stable on lopid (2) GERD (gastroesophageal reflux disease): Code(s): K21.9 - Gastro-esophageal reflux disease without esophagitis Category: Medical Qualifiers: Esophagitis presence: esophagitis presence not specified Qualified Code(s): K21.9 - Gastro-esophageal reflux disease without esophagitis Plan: continue PPI (3) 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(s): 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 - Idiopathic orofacial dystonia Category: Medical Plan: Doing well on baclofen Neruo follow up prn Orders: Orders Prostate Specific Antigen Today E78.5 - Hyperlipidemia, unspecified, K21.9 - Gastro-esophageal reflux disease without esophagitis, N32.0 - Bladder-neck obstruction, Z12.5 - Encounter for screening for malignant neoplasm of prostate Complete Blood Count Auto Diff Today E78.5 - Hyperlipidemia, unspecified, K21.9 - Gastro-esophageal reflux disease without esophagitis, N32.0 - Bladder-neck obstruction, Z12.5 - Encounter for screening for malignant neoplasm of prostate Comprehensive Met. Panel Today E78.5 - Hyperlipidemia, unspecified, K21.9 - Gastro-esophageal reflux disease without esophagitis, N32.0 - Bladder-neck obstruction, Z12.5 - Encounter for screening for malignant neoplasm of prostate Lipid Panel Today E78.5 - Hyperlipidemia, unspecified, K21.9 - Gastro-esophageal reflux disease without esophagitis, N32.0 - Bladder-neck obstruction, Z12.5 - Encounter for screening for malignant neoplasm of prostate
[2025-01-27 15:36] VITALS: BP 124/70; PULSE 70; RESP 14; TEMP 36.5; O2SAT 96; BMI 26.7
--- OUTSIDE RECORDS SUMMARY | 2025-01-27 16:06 | XMS_ITS | Clinical Summary ---
Author Organization [facility] ity Address [address] [place] [address] Care Team Providers Care Flight Attendant/Inflight Supervisor Name Role Phone Unavailable Primary Care Provider Unavailabl e Social History Tobacco Use Types Packs/Day Years Used Date Smoking Tobacco: Never Assessed Sex and Gender Information Value Date Recorded Sex Assigned at Not on file Legal Sex Male 12:15 PM EST Gender Identity Not on file Sexual Orientation Not on file Plan of Treatment Health Maintenance Due Date Last Done Comments DTaP,Tdap,and Td Vaccines (1 - Tdap) 1964 Pneumococcal Vaccine: 50+ Ye ars (1 of 1 - PCV) 02/04/1996 Zoster Vaccines (1 of 2) 02/04/1996 RSV Immunization Patients 60 + Years Old (1 - 1-dose 75+ series) 2021 COVID-19 Vaccine ( - 2023-2 5 season) 2024 Influenza Vaccine (#1) 2024 HIB Vaccines Aged Out No longer eligi ble based on patient's age to complete this topic HPV Vaccines Aged Out No longer eligi ble based on patient's age to complete this topic Hepatitis A Vaccines Aged Out No long er eligible based on patient's age to complete this topic Hepatitis B Vaccines Aged Out No long er eligible based on patient's age to complete this topic IPV Vaccines Aged Out No longer eligi ble based on patient's age to complete this topic MMR Vaccines Aged Out No longer eligi ble based on patient's age to complete this topic Meningococcal ACWY Vaccine Aged Out N o longer eligible based on patient's age to complete this topic Meningococcal B Vacine Aged Out No lo nger eligible based on patient's age to complete this topic RSV Immunization Patients Un cedrick 20 months Aged Out No longer eligible b ased on patient's age to complete this topic Varicella Vaccines Aged Out No longer eligible based on patient's age to complete this topic
== END 2025-01-27 16:28 | disposition home or self-care (01) ==
LOC: HO.HMCHD 14:31
PROVIDERS: PCP Internal Medicine; Visit Provider Internal Medicine
DX: E78.00 Pure hypercholesterolemia, unspecified (principal); K21.9 Gastro-esophageal reflux disease without esophagitis; G24.4 Idiopathic orofacial dystonia

== ENCOUNTER → 2025-01-27 14:31 | Outpatient (BNVA) | payer MEDICARE, SELFPAY | PROVIDERS: PCP Internal Medicine; Visit Provider Internal Medicine | DX: K21.9 Gastro-esophageal reflux disease without esophagitis (principal); E78.00 Pure hypercholesterolemia, unspecified; G24.4 Idiopathic orofacial dystonia | CPT/HCPCS: 96127; 99212 ==

== ENCOUNTER 2025-05-04 10:21 | Outpatient (AMB) | payer MEDICARE, SELFPAY ==
--- NOTE | 2025-05-04 10:25 | A.OFFVIS_ITS ---
Intake Visit Reasons: 6M follow up Intake Note: Patient is present for 6M F/U Urology Medication:TRIMETHOPRIM,BACLOFEN,VITAMIN C,FINASTERIDE,FLUTICASONE PROPIONATE Antibiotic Allergy:NONE Blood Thinner:NONE Remote Operations Producer Required: No Allergies No Known Allergies (No Known Allergies*) Allergy (Verified 05/04/25 10:27) HPI Comments Details: Kings is a very pleasant male. He is a patient of Dr. Joyner. He is seen for the following urologic conditions - neurogenic bladder - orchitis Telemedicine Evaluation 15 min Consultation [facility] Six-month follow up Continues to require CIC for bladder emptying Has to empty bladder up to 5 times per day. 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 Small prostate. Large bladder with diverticula and trabeculation Should have vitamin-C and trimethoprim for UTI prevention PFSH Medical History Frequent urination Surgical History History of knee replacement History of rotator cuff surgery Family History Father COPD (chronic obstructive pulmonary disease) Mother Diabetes Epilepsy Alcohol abuse Stroke Social History Household Members: Spouse Housing: House Do you presently have visiting nurse or other home services: No Alcohol intake: current Alcohol intake frequency: a few times a week Alcohol type: beer Patient Tobacco Use Status: Former Tobacco user service: No Current occupational status: retired Cognitive needs: No Hearing needs: No Vision needs: Yes (rx glasses) Review of Systems Const All systems reviewed & are unremarkable except as noted in HPI and below Reports no additional complaints Resp Reports no additional complaints GI Reports no additional complaints Reports as per HPI Musc Reports no additional complaints Physical Exam Telemedicine evaluation Appropriate responses Regular breathing rate and rhythm HEENT Head: Yes normal to inspection Ears: hearing grossly normal bilaterally Eyes General: appearance normal, both eyes and all related structures Neck Neck: Yes normal visual inspection Chest Chest palpation & inspection: normal inspection of the chest Resp Effort & Inspection: normal respiratory effort and able to speak in complete sentences Telehealth Telehealth Location of provider rendering services: practice address Location of patient: address on file Patient Identification confirmed using: Name, : Yes Telehealth method: voice only Patient verbally consented to treatment: Yes Patient verbally consented to billing insurance company: Yes Patient informed of any privacy concerns related to visit: Yes Assessment & Plan Assessment & Plan (1) Neurogenic urinary bladder disorder: Code(s): N31.9 - Neuromuscular dysfunction of bladder, unspecified Category: Medical (2) Urinary retention with incomplete bladder emptying: Code(s): R33.9 - Retention of urine, unspecified Category: Medical Plan Six-month follow-up office Medications: Refilled trimethoprim 100 mg PO DAILY 90 days 90 tabs 1RF R33.9 - Retention of urine, unspecified trimethoprim 100 mg PO DAILY 90 tabs 1RF 90 days R33.9 - Retention of urine, unspecified finasteride 5 mg PO Thursday, Thursday, Thursday; 90 tabs 1RF 90 days ascorbic acid (vitamin C) 500 mg PO DAILY 90 tabs 1RF 90 days R33.9 - Retention of urine, unspecified Patient Instructions: This note is constructed using voice recognition software. While every effort has been made to ensure accuracy room worker errors may have been included. Imaging studies, laboratory and physical exam results were discussed and reviewed in detail. No major barriers to patient understanding were identified. An opportunity to ask questions regarding the treatment plan was provided. All questions were answered. The patient expressed understanding and agreement with the above treatment plan. The patient is aware they should contact our office by phone for worsening of their current condition or the appearance of new urologic symptoms. Compliance is encouraged with any medications and followup testing that is ordered. It is a privilege to participate in the urologic care of your patient. If you have any questions or concerns regarding treatment for the above conditions, or other urologic issues, please do not hesitate to contact me. The office telephone contact is [phone]. Sincerely, Dr Collin Ricketts MD, [facility] - Urology Compassionate Specialist Care for the Genitourinary System Coding Level of Care Code Tele Est Pt Level 3 (31028) Complex EM visit Add On G2211 Diagnoses Neurogenic urinary bladder disorder N31.9 Urinary retention with incomplete bladder emptying R33.9
--- OUTSIDE RECORDS SUMMARY | 2025-05-04 11:41 | XMS_ITS | Clinical Summary ---
Author Organization [facility] ity Address [address] [place] [address] Care Team Providers Care Garage Laborer Name Role Phone Unavailable Primary Care Provider [...] Vaccines (1 of 2) 02/04/1996 RSV Immunization Adult Patie nts (1 - 1-dose 75+ series) 2021 COVID-19 Vaccine ( - 2023-2 5 season) 2024 Influenza Vaccine (Season Ended) 2025 HIB Vaccines Aged Out No longer eligi [...] age to complete this topic Meningococcal B Vaccine Aged Out No l onger eligible based on patient's age to complete this topic RSV Immunization Patients Un cedrick 20 months Aged Out No longer eligible b ased on patient's age to complete this topic Varicella Vaccines Aged Out No longer eligible based on patient's age to complete this topic
== END 2025-05-04 11:02 | disposition home or self-care (01) ==
LOC: HO.HUSH 10:21
PROVIDERS: PCP Internal Medicine; Visit Provider Urology
DX: N31.9 Neuromuscular dysfunction of bladder, unspecified (principal); R33.9 Retention of urine, unspecified
CPT/HCPCS: 99213; G2211

== ENCOUNTER → 2025-05-04 10:21 | Outpatient (BNVA) | payer MEDICARE, SELFPAY | PROVIDERS: PCP Internal Medicine; Visit Provider Urology ==

== ENCOUNTER 2025-08-30 10:54 | Outpatient (REF) | payer MEDICARE, SELFPAY ==
--- OUTSIDE RECORDS SUMMARY | 2025-08-30 13:19 | XMS_ITS | Clinical Summary ---
Author Organization [facility] ity Address [address] [place] [address] Care Team Providers Care Chiropractic Teacher Name Role Phone Unavailable Primary Care Provider [...] nts (1 - 1-dose 75+ series) 2021 Depression Screening 11/16/2024 COVID-19 Vaccine ( - 2023-2 5 season) 2025 Influenza Vaccine (#1) 2025 HIB Vaccines Aged Out No longer [...]
--- OUTSIDE RECORDS SUMMARY | 2025-08-30 13:19 | XMS_ITS | Patient Health Record ---
Author Organization [facility] Address [address] [place] [address] Care Team Providers Care Copy Operator Name Role Phone Ar (RETIRED) Elan KAMINSKI Primary Care Provide Sukhwinder Rosado Jr Unavailable Allergies Allergen (clinical drug ingredient) Drug/Non Drug Allergy documented on EMR Reaction Allergy Type Onset Date Status hayfever,grass,mold (uncoded) Unknown Allergy Active Reason For Referral No Information Medications Medication SIG (Take, Route, Frequency, Duration) Notes Start Date End Date Status Gemfibrozil 600 MG 1 tablet Orally Twic e a day Active Omeprazole 20 MG 1 capsule Orally Onc e a day Active Metamucil Active Colyte with Flavor Packs 240 GM As directed Orally Over the specified time.; Duration: 1 day(s) 08/10/2014 Active Plan Of Treatment Future Test Test Name Order Date COLONOSCOPY 08/10/2014 Insurance Providers Payer Name Payer Address Payer Phone Subscriber Number Group Number Insured Name Patient Relationship to Insured Coverage Start Date Coverage End Date MEDICARE OF [place] [address] [place] [id number] [phone] [id number] SOPHIA JOSEPH Self - patient is the insured [facility] SUPPLEMENTAL PLAN [address] [place] [address] [phone] [id number] SOPHIA JOSEPH Self - patient is the insured Medical (General) History Medical History History ICD Code Denies [place],DM,CVA,Lung disease,renal dise ase Surgical History Surgery Date(Month/Year) hernia repair-bilateral left knee arthroscopy right knee arthroscopy
[2025-08-30 13:21] LABS: MANUAL DIFF FLAG NO
[2025-08-30 13:27] LABS: Hematocrit 48.9 % (42.0-52.0); Hemoglobin 15.8 g/dl (14.0-18.0); Imm Gran Abs Auto 0.02 X10*3/uL (0.00-0.03); Imm Gran Pct Auto 0.2 % (0.0-0.4); Lymphocytes Absolute Auto 1.6 X10*3/uL (1.2-4.9); Mean Corpuscular HGB Conc 32.3 g/dl (31.0-36.0); Mean Corpuscular Hemoglobin 28.3 pg (27.0-33.0); Mean Corpuscular Volume 87.6 fL (80.0-98.0); NRBC Abs Auto 0.000 X10*3/uL (0.0-0.012); NRBC Pct Auto 0.0 /100WBC (0.0-0.2); Platelet Count 286 X10*3/uL (160-400); Red Blood Count 5.58 X10*6/uL (4.60-5.80); White Blood Count 8.0 X10*3/uL (4.8-10.8)
[2025-08-30 13:56] LABS: Alanine Aminotransferase 18 U/L (0-40); Albumin Level 4.4 g/dL (3.5-5.0); Alkaline Phosphatase 84 U/L (39-117); Anion Gap 10 (12-20); Aspartate Amino Transferase 22 U/L (5-37); Blood Urea Nitrogen 14 mg/dL (9-16); Calcium 9.3 mg/dL (8.4-10.2); Carbon Dioxide 28 mmol/L (22-29); Chloride 111 mmol/L (96-108); Cholesterol 154 mg/dL (<200); Estimated Glomerular Filt Rate 59; HDL Cholesterol 33 mg/dL (>40); Potassium 4.5 mmol/L (3.3-5.1); Sodium 144 mmol/L (135-145); Total Protein 6.9 g/dL (6.5-8.0); Triglycerides 94 mg/dL (<150)
[2025-08-30 14:20] LABS: Prostate Specific Antigen 2.72 ng/mL (<0.05-4.0)
== END 2025-08-30 10:55 | disposition home or self-care (01) ==
LOC: HO.10HDL 10:54
PROVIDERS: Visit Provider Internal Medicine
DX: N32.0 Bladder-neck obstruction (principal); K21.9 Gastro-esophageal reflux disease without esophagitis; E78.5 Hyperlipidemia, unspecified; Z12.5 Encounter for screening for malignant neoplasm of prostate
CPT/HCPCS: 36415; 80053; 80061; 84153; 85025

== ENCOUNTER 2025-10-31 09:58 | Outpatient (AMB) | payer MEDICARE, SELFPAY ==
--- NOTE | 2025-10-31 10:12 | MHC.OFFVIS ---
Intake Visit Reasons: 6m f/u SET UA Intake Note: Patient is present for 6M F/U Urology Medication:VIT-C , Finasteride , Trimethoprim Antibiotic Allergy:NONE Blood Thinner:NONE Professor Of English Required: No Accompanied by: Self / Same As Patient Allergies No Known Allergies (No Known Allergies*) Allergy (Verified 10/31/25 10:13) HPI Comments Details: Kings is a very pleasant male. He is a patient of Dr. Joyner. He is seen for the following urologic conditions - neurogenic bladder - orchitis Six-month follow-up Continues to require CIC for bladder emptying Has to empty bladder up to 5 times per day. 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 Small prostate. Large bladder with diverticula and trabeculation Should have vitamin-C and trimethoprim for UTI prevention PFSH Medical History (Updated 10/31/25 @ 10:59 by Collin Ricketts MD) Osteoarthritis Frequent urination Surgical History History of knee replacement History of rotator cuff surgery Family History (Updated 09/07/25 @ 13:08 by Zahraa Andrade MA) Father COPD (chronic obstructive pulmonary disease) Mother Diabetes Epilepsy Alcohol abuse Stroke Social History Household Members: Spouse Housing: House Do you presently have visiting nurse or other home services: No Alcohol intake: current Alcohol intake frequency: a few times a week Alcohol type: beer Patient Tobacco Use Status: Former Tobacco user e-Cigarette/Vaping Use: Former Use service: No Current occupational status: retired Cognitive needs: No Hearing needs: No Vision needs: Yes (rx glasses) Review of Systems Const Denies chills and Denies fever(s) Card Reports no additional complaints and Denies syncope Resp Denies cough GI Denies abdominal pain and Denies heartburn Reports as per HPI and Denies change in libido Neuro Denies syncope Psych Denies change in libido Endo Denies change in libido Physical Exam Const General: cooperative, healthy appearing, comfortable and no acute distress Orientation/consciousness: patient oriented x3 HEENT Face and sinus: Yes normal facial exam Mouth: moist mucous membranes Neck Neck: Yes normal visual inspection, Yes full ROM and Yes trachea midline Chest Chest palpation & inspection: normal inspection of the chest Resp Effort & Inspection: normal respiratory effort, able to speak in complete sentences and no respiratory distress GI Inspection: Yes normal to inspection Back/Spine/Pelvis Cervical Spine: normal cervical lordosis Thoracic/Lumbar Spine: thoracic and lumbar spine normal to inspection Skin General skin exam: no rashes or lesions noted Neuro General: patient oriented x3, gait normal, tone normal and moves all extremities Extrem General: Yes normal to inspection and Yes capillary refill normal Assessment & Plan Assessment & Plan (1) Urinary retention with incomplete bladder emptying: Code(s): R33.9 - Retention of urine, unspecified Category: Medical (2) Neurogenic urinary bladder disorder: Code(s): N31.9 - Neuromuscular dysfunction of bladder, unspecified Category: Medical (3) Intermittent self-catheterization of bladder: Code(s): Z78.9 - Other specified health status Category: Medical Plan Six-month follow-up tele Medications: Refilled trimethoprim 100 mg PO DAILY 90 tabs 1RF 90 days R33.9 - Retention of urine, unspecified ascorbic acid (vitamin C) 500 mg PO DAILY 90 tabs 1RF 90 days R33.9 - Retention of urine, unspecified Patient Instructions: This note is constructed using voice recognition software. While every effort has been made to ensure accuracy cone worker errors may have been included. Imaging studies, laboratory and physical exam results were discussed and reviewed in detail. No major barriers to patient understanding were identified. An opportunity to ask questions regarding the treatment plan was provided. All questions were answered. The patient expressed understanding and agreement with the above treatment plan. The patient is aware they should contact our office by phone for worsening of their current condition or the appearance of new urologic symptoms. Compliance is encouraged with any medications and followup testing that is ordered. It is a privilege to participate in the urologic care of your patient. If you have any questions or concerns regarding treatment for the above conditions, or other urologic issues, please do not hesitate to contact me. The office telephone contact is [phone]. Sincerely, Dr Collin Ricketts MD, [facility] - Urology Compassionate Specialist Care for the Genitourinary System Coding Level of Care Code Est Pt Level 3 (28208) Add On Problem Visit Only Diagnoses Urinary retention with incomplete bladder emptying R33.9 Neurogenic urinary bladder disorder N31.9 Intermittent self-catheterization of bladder Z78.9
--- OUTSIDE RECORDS SUMMARY | 2025-10-31 12:08 | XMS_ITS | Patient Health Record ---
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 Role Phone Ar (RETIRED) Elan KAMINSKI Primary Care Provide Sukhwinder Rosado Jr Unavailable [phone] Allergies Allergen (clinical drug ingredient) Drug/Non Drug Allergy documented on EMR Reaction Allergy Type Onset Date Status hayfever,grass,mold (uncoded) Unknown Allergy Active Reason For Referral No Information Medications Medication SIG (Take, Route, Frequency, Duration) Notes Start Date End Date Status Gemfibrozil 600 MG Tablet 1 tablet Orall y Twice a day Active Omeprazole 20 MG Capsule Delayed Release 1 capsule Orally Once a day Active Metamucil Active Colyte with Flavor Packs 240 GM Solution Reconstituted As directed Orally Over the specified time.; Duration: 1 day(s) 08/10/2014 Active Social History Social History Additional Details Category Social Info Options Details Miscellaneous: Marital status: Occupation: retired Plan Of Treatment Future Test Test Name Order Date COLONOSCOPY 08/10/2014 Insurance Providers Payer Name Payer Address Payer Phone Subscriber Number Group Number Insured Name Patient Relationship to Insured Coverage Start Date Coverage End Date MED[place]ARE OF [place] [address] [place] [id number] [phone] [id number] SOPHIA JOSEPH Self - patient is the insured [facility] [employer] [address] [place] [address] [id number] SOPHIA JOSEPH Self - patient is the insured Medical (General) History Medical History History ICD Code Denies SD,DM,CVA,Lung disease,renal dise ase Surgical History Surgery Date(Month/Year) hernia repair-bilateral left knee arthroscopy right knee arthroscopy
--- OUTSIDE RECORDS SUMMARY | 2025-10-31 12:08 | XMS_ITS | Clinical Summary ---
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
== END 2025-10-31 11:01 | disposition home or self-care (01) ==
LOC: HO.HUSH 09:59
PROVIDERS: PCP Internal Medicine; Visit Provider Urology
DX: R33.9 Retention of urine, unspecified (principal); N31.9 Neuromuscular dysfunction of bladder, unspecified; Z78.9 Other specified health status
CPT/HCPCS: 99213; G2211

== ENCOUNTER → 2025-10-31 09:58 | Outpatient (BNVA) | payer MEDICARE, SELFPAY | PROVIDERS: PCP Internal Medicine; Visit Provider Urology | DX: R33.9 Retention of urine, unspecified (principal); N31.9 Neuromuscular dysfunction of bladder, unspecified | CPT/HCPCS: 99212 ==